=== PATIENT | female | born 1950 | race Caucasian/White ===

== ENCOUNTER 2018-05-03 04:06 | Inpatient (IN) ==
--- NOTE | 2018-05-03 04:43 | Emergency Department Note ---
Disposition Clinical Impression: Elevated troponin I level Rhabdomyolysis Qualifiers: Rhabdomyolysis type: non-traumatic Qualified Code(s): M62.82 - Rhabdomyolysis Disposition: Still a Patient Condition: Fair Referrals: Siobhan Robison CNP [Primary Care Provider] - Forms: ED Satisfaction Letter, Work/School Release Time of Disposition: 05:52 General Adult HPI - General Chief complaint: ED General Medical Time Seen by Provider: 05/03/18 04:18 Source: patient, family, EMS Mode of arrival: EMS Limitations: other Nursing Notes Reviewed: Yes Vital Signs Reviewed: Yes - History of Present Illness HPI Narrative: Nontoxic-appearing 68-year-old female with a significant psychiatric history is brought by EMS for evaluation. The patient resides at a [facility] in [place]. She apparently left this facility sometime after 2:00 PM yesterday afternoon, as family reports this was the last time the patient was seen at said facility. The patient was found by search and rescue teams just prior to arrival. Family members report that the patient was lying in a low lying area, a region that sounds like a ditch somewhere between a parking lot and a and field. The patient states that she had fallen multiple times throughout the course of yesterday afternoon/evening and into this morning. She states that when she fell, she does remember hitting the back of her head. She denies any known loss of consciousness. When asked why she had left the facility, the patient stated that she just wanted to go for a walk. She states she got lost in the process. She denies any pain at the time of presentation however upon physical exam, she has point tenderness of the cervical, thoracic, and lumbar spine. She is not hypothermic upon the obtainment of triage vitals. She is alert, awake, and in no obvious distress. Pain Scale: 0 Treatments Prior to Arrival: none - Related Data Home Medications Medication Instructions Recorded Confirmed Albuterol Sulfate 11/05/15 Clonazepam 11/05/15 Lexapro 11/05/15 Multivitamins 11/05/15 11/05/15 Risperidone 11/05/15 Seroquel 11/05/15 Simvastatin 11/05/15 Previous Rx's Medication Instructions Recorded hydrOXYzine pamoate [HydrOXYzine 25 mg PO TID PRN #30 capsule 11/05/15 Pamoate] Allergies Allergy/AdvReac Type Severity Reaction Status Date / Time No Known Allergies Allergy Verified 11/05/15 18:40 All systems ED: reviewed and negative except as stated. Review of Systems: As Per HPI Constitutional: Denies: fever, chills, weakness, weight change Eyes: Denies: eye pain, eye discharge, vision change ENT ED: Denies: ear pain, throat pain, dental pain, hearing loss, epistaxis, congestion, dysphagia Cardiovascular: Denies: chest pain, palpitations, dyspnea on exertion, edema, syncope Respiratory: Denies: cough, dyspnea, wheezes, hemoptysis, stridor Gastrointestinal: Denies: abdominal pain, nausea, vomiting, diarrhea, constipation, hematemesis, melena, hematochezia Genitourinary: Denies: dysuria, frequency, hematuria, discharge Musculoskeletal: Reports: back pain, neck pain. Denies: arthralgia, myalgia Integumentary: Denies: rash, abrasion, lesions Neurological: Denies: headache, weakness, numbness, paresthesias, confusion, abnormal gait, vertigo Psychiatric: Denies: anxiety, depression, suicidal thoughts, homicidal thoughts , auditory hallucinations, visual hallucinations Endocrine: Denies: fatigue Hematological/Lymphatic: Denies: easy bleeding, easy bruising Allergic/Immunologic: Denies: facial swelling, urticaria Past Medical History - Past Medical History Attestation: Yes The following information was validated with the patient. Source: patient, nursing notes reviewed Medical history: Reports: non-contributory, hyperlipidemia Psychiatric history: Reports: anxiety, bipolar, schizophrenia - Social History Smoking Status: Unknown if ever smoked Smokeless Tobacco Status: No Alcohol use: Reports: unknown Drug use: Reports: none Physical Exam - General Limitations: no limitations General appearance: alert, in no apparent distress - Head Head exam: atraumatic, normocephalic, normal inspection - Expanded Head Exam Head exam physicial: Absent: laceration, abrasion, contusion, hematoma, raccoon eyes, Ji's sign, tenderness of temporal artery - Eye Eye exam: Present: normal appearance, PERRL, EOMI. Absent: nystagmus - ENT ENT exam: mucous membranes dry - Neck Neck exam: Present: full ROM, trachea midline, tenderness (Point tenderness, cervical spine) - Chest Chest inspection: Present: normal inspection, symmetric chest wall rise - Respiratory Respiratory exam: Present: normal lung sounds bilaterally. Absent: respiratory distress, wheezes, stridor, accessory muscle use, prolonged expiratory phase - Cardiovascular Cardiovascular exam: Present: regular rate, normal rhythm, normal heart sounds - Abdominal Exam Abdominal exam: Present: soft, Non-Tender, normal bowel sounds - Expanded Upper Extremity Exam Shoulder exam: Present: full ROM Arm exam: Present: full ROM, erythema (Small well-demarcated area of ecchymosis noted to the medial aspect of the right upper arm) Elbow exam: Present: full ROM Forearm/Wrist exam: Present: full ROM Hand exam: Present: full ROM Neuromotor exam: Normal: wrist extension, thumb opposition, fingers 2-5 abduction Neurosensory exam: Normal: radial nerve, ulnar nerve, 2-point discrimination Hand tendon exam: Normal: flexor digitorum profundus (location), extensor tendon (location) Vascular exam: Normal: capillary refill, radial pulse, ulnar pulse - Back Exam Back exam: Present: tenderness, vertebral tenderness (Point tenderness with palpation of the vertebral spinous processes of the thoracic and lumbar spine.) - Neurological Exam Neurological exam: Present: alert - Psychiatric Psychiatric exam: Present: normal affect, normal mood - Skin Skin exam: Present: warm, dry, intact Course Vital Signs Temperature 98.3 F 05/03/18 04:17 Pulse Rate 107 05/03/18 04:17 Respiratory Rate 20 05/03/18 04:17 Blood Pressure 100/83 05/03/18 04:17 O2 Sat by Pulse Oximetry 96 05/03/18 04:17 Temperature 98.3 F 05/03/18 04:17 Pulse Rate 105 05/03/18 06:31 Respiratory Rate 21 05/03/18 06:31 Blood Pressure 109/73 05/03/18 06:31 O2 Sat by Pulse Oximetry 95 05/03/18 06:31 Oxygen Delivery Oxygen Delivery Room Air Medical Decision Making - [facility] Narrative Medical decision making narrative: After receiving word of her elevated troponin and obtain EKG which showed only sinus tachycardia at a rate of 114 bpm, I reevaluated the patient. Upon this reevaluation, the patient does state that she has had episodes of left-sided chest pain however this has been occurring for the past 1-2 months. About the details describes it as a pressure in the left anterior chest. She denies any new or worsening pain. Aspirin will be given. At this time, we are awaiting urinalysis and imaging results prior to admission to the hospital service for elevated troponin levels and rhabdomyolysis. Care of this patient will be transferred to the [facility]-level provider. - Medical Records Medical records reviewed: Yes I reviewed the patient's medical records. - Lab Data Lab results reviewed: Yes I reviewed the patient's lab results. Lab results narrative: Lab Results 05/03/18 05/03/18 05/03/18 Range/Units 04:40 04:40 04:40 WBC 13.3 H (4.3-11.1) K/mcL RBC 4.67 (3.82-4.97) M/mcL Hgb 14.6 (11.5-15.4) g/dL Hct 41.2 (35.3-44.9) % MCV 88.2 (83.0-100.0) fL MCH 31.3 (28.0-33.3) pg MCHC 35.4 (31.6-35.5) g/dL RDW 13.0 (11.5-14.5) % Plt Count 111 L (140-400) K/mcL MPV 11.3 (9.4-12.4) fL Immature Gran % 0.5 (0-4) % Seg Neutrophils % 79.2 % Lymphocytes % 13.1 % Monocytes % 7.0 % Eosinophils % 0.0 % Basophils % 0.2 % Neutrophils # 10.5 H (1.6-8.9) K/mcL Lymphocytes # 1.7 (0.6-4.6) K/mcL Monocytes # 0.9 (0.0-1.3) K/mcL Eosinophils # 0.0 (0.0-0.6) K/mcL Basophils # 0.0 (0.0-0.2) K/mcL PT 13.2 H (9.4-12.1) Seconds INR 1.2 APTT 31.6 (26.0-36.0) Seconds Sodium 138 (136-145) mEq/L Potassium 4.2 (3.5-5.1) mEq/L Chloride 103 (98-107) mEq/L Carbon Dioxide 13 L (23-29) mEq/L BUN 31 H (8-23) mg/dL Creatinine 2.61 H (0.60-1.20) mg/dL Est GFR ( Amer) 22 L (> 60) Est GFR (Non-Af Amer) 18 L (> 60) BUN/Creatinine Ratio 12 (6-26) Glucose 188 H (70-105) mg/dL Calculated Osmolality 298 (280-300) Calcium 9.4 (8.6-10.3) mg/dL Creatine Kinase 3754 H (30-223) Units/L Troponin I 3.05 H* (< 0.04) ng/mL Result diagrams: 05/03/18 04:40 05/03/18 04:40 Lab Results 05/03/18 05/03/18 05/03/18 Range/Units 04:40 04:40 04:40 WBC 13.3 H (4.3-11.1) K/mcL RBC 4.67 (3.82-4.97) M/mcL Hgb 14.6 (11.5-15.4) g/dL Hct 41.2 (35.3-44.9) % MCV 88.2 (83.0-100.0) fL MCH 31.3 (28.0-33.3) pg MCHC 35.4 (31.6-35.5) g/dL RDW 13.0 (11.5-14.5) % Plt Count 111 L (140-400) K/mcL MPV 11.3 (9.4-12.4) fL Immature Gran % 0.5 (0-4) % Seg Neutrophils % 79.2 % Lymphocytes % 13.1 % Monocytes % 7.0 % Eosinophils % 0.0 % Basophils % 0.2 % Neutrophils # 10.5 H (1.6-8.9) K/mcL Lymphocytes # 1.7 (0.6-4.6) K/mcL Monocytes # 0.9 (0.0-1.3) K/mcL Eosinophils # 0.0 (0.0-0.6) K/mcL Basophils # 0.0 (0.0-0.2) K/mcL PT 13.2 H (9.4-12.1) Seconds INR 1.2 APTT 31.6 (26.0-36.0) Seconds Sodium 138 (136-145) mEq/L Potassium 4.2 (3.5-5.1) mEq/L Chloride 103 (98-107) mEq/L Carbon Dioxide 13 L (23-29) mEq/L BUN 31 H (8-23) mg/dL Creatinine 2.61 H (0.60-1.20) mg/dL Est GFR ( Amer) 22 L (> 60) Est GFR (Non-Af Amer) 18 L (> 60) BUN/Creatinine Ratio 12 (6-26) Glucose 188 H (70-105) mg/dL Calculated Osmolality 298 (280-300) Calcium 9.4 (8.6-10.3) mg/dL Creatine Kinase 3754 H (30-223) Units/L Troponin I 3.05 H* (< 0.04) ng/mL Urine Color (Yellow) Urine Clarity (Clear) Urine pH (5.0-8.0) pH Units Ur Specific [place] (1.010-1.025) Urine Protein (Neg-Trace) mg/dL Urine Glucose (UA) (Normal) mg/dL Urine Ketones (Negative) mg/dL Urine Blood (Negative) Urine Nitrite (Negative) Urine Bilirubin (Negative) Urine Urobilinogen (Normal) mg/dL Ur Leukocyte Esterase (Negative) Urine Microscopic RBC (0-3) per hpf Urine Microscopic WBC (0-3) per hpf Ur Squamous Epith Cells (None-Few) per lpf Ur Transition Epith Cell (None-Few) per hpf Urine Bacteria (None-Few) per hpf Hyaline Casts (None-Few) per lpf Ur Culture Indicated? (NO) 05/03/18 Range/Units 05:52 WBC (4.3-11.1) K/mcL RBC (3.82-4.97) M/mcL Hgb (11.5-15.4) g/dL Hct (35.3-44.9) % MCV (83.0-100.0) fL MCH (28.0-33.3) pg MCHC (31.6-35.5) g/dL RDW (11.5-14.5) % Plt Count (140-400) K/mcL MPV (9.4-12.4) fL Immature Gran % (0-4) % Seg Neutrophils % % Lymphocytes % % Monocytes % % Eosinophils % % Basophils % % Neutrophils # (1.6-8.9) K/mcL Lymphocytes # (0.6-4.6) K/mcL Monocytes # (0.0-1.3) K/mcL Eosinophils # (0.0-0.6) K/mcL Basophils # (0.0-0.2) K/mcL PT (9.4-12.1) Seconds INR APTT (26.0-36.0) Seconds Sodium (136-145) mEq/L Potassium (3.5-5.1) mEq/L Chloride (98-107) mEq/L Carbon Dioxide (23-29) mEq/L BUN (8-23) mg/dL Creatinine (0.60-1.20) mg/dL Est GFR ( Amer) (> 60) Est GFR (Non-Af Amer) (> 60) BUN/Creatinine Ratio (6-26) Glucose (70-105) mg/dL Calculated Osmolality (280-300) Calcium (8.6-10.3) mg/dL Creatine Kinase (30-223) Units/L Troponin I (< 0.04) ng/mL Urine Color Dark Yellow (Yellow) Urine Clarity Cloudy A (Clear) Urine pH 5.5 (5.0-8.0) pH Units Ur Specific [place] 1.011 (1.010-1.025) Urine Protein 30 H (Neg-Trace) mg/dL Urine Glucose (UA) Normal (Normal) mg/dL Urine Ketones 40 H (Negative) mg/dL Urine Blood Large H (Negative) Urine Nitrite Negative (Negative) Urine Bilirubin Small H (Negative) Urine Urobilinogen Normal (Normal) mg/dL Ur Leukocyte Esterase Negative (Negative) Urine Microscopic RBC 5-15 H (0-3) per hpf Urine Microscopic WBC 3-5 H (0-3) per hpf Ur Squamous Epith Cells Many H (None-Few) per lpf Ur Transition Epith Cell Few (None-Few) per hpf Urine Bacteria None Seen (None-Few) per hpf Hyaline Casts Few (None-Few) per lpf Ur Culture Indicated? NO (NO) - EKG Data EKG #1 EKG attestation: Yes I reviewed and interpreted this EKG. EKG results narrative: EKG shows a sinus tachycardia at a rate of 114 bpm. MO interval 143, QRS duration 67, QT/QTc interval 352/485. No ectopy noted. No ST elevation. Critical Care Time Critical Care Time: Yes Total Critical Care Time: 25 Attestation: 25 minutes of critical care time was invested independent of separately billable procedures S.B.A.R. - S.B.A.Harpreet. Situation: Demographics, MOA Background: Presenting Complaint, Relevant PMH, Meds, & Allergies Assessment: Vital Signs, Course and respsone to treatment, Exam Concerns, Patient/Family Expectation, Pertinant Lab Results, Outstanding Labs Recommendation: Barrier(s) to disposition, Recommendation based on pending studies, treatments, or consults S.B.A.R. Report Given to: Rio Wisdom CNP S.B.A.RÓscar Repor Time: 06:00 Attestation Statement - Attestation Attestation: I have personally performed a face to face evaluation on this patient. I have reviewed and agree with the care plan. History and Exam by me shows: History was sketchy because the patient's baseline psychiatric disease. Her evaluation was concerning for rhabdomyolysis and elevated troponin, and the latter was concerning for non-ST elevation DC. IV fluid was given for rhabdo and heparin was started for non-ST elevation DC Cardiology in the hospitalist service were contacted by the mid-level provider, and she was admitted to the hospital
[2018-05-03] MEDS ORDERED: 0.9 % Sodium Chloride 1,000 ML IVC ONE ×2 (04:45→05:41)
[2018-05-03 04:56] LABS: Basophils % 0.2 %; Hematocrit 41.2 % (35.3-44.9); Hemoglobin 14.6 g/dL (11.5-15.4); Immature Granulocytes % 0.5 % (0-4); Lymphocytes # 1.7 K/mcL (0.6-4.6); Lymphocytes % 13.1 %; Mean Corpuscular HGB Conc 35.4 g/dL (31.6-35.5); Mean Corpuscular Hemoglobin 31.3 pg (28.0-33.3); Mean Corpuscular Volume 88.2 fL (83.0-100.0); Mean Platelet Volume 11.3 fL (9.4-12.4); Monocytes # 0.9 K/mcL (0.0-1.3); Neutrophils # 10.5 K/mcL (1.6-8.9); Platelet Count 111 K/mcL (140-400); Red Blood Count 4.67 M/mcL (3.82-4.97); Segmented Neutrophils % 79.2 %
[2018-05-03 05:04] LABS: INR 1.2; Prothrombin Time 13.2 Seconds (9.4-12.1)
[2018-05-03 05:07] LABS: Activated Partial Thrombo Time 31.6 Seconds (26.0-36.0)
[2018-05-03 05:22] LABS: Troponin I 3.05 ng/mL (< 0.04)
[2018-05-03 05:49] LABS: Calcium 9.4 mg/dL (8.6-10.3); Potassium 4.2 mEq/L (3.5-5.1)
[2018-05-03 06:05] LABS: Bilirubin,Urine Small (Negative); Blood,Urine Large (Negative); Clarity,Urine Cloudy (Clear); Color,Urine Dark Yellow (Yellow); Glucose,Urine (UA) Normal (Normal); Ketones,Urine 40 mg/dL (Negative); Leukocyte Esterase,Urine Negative (Negative); Nitrite,Urine Negative (Negative); PH,Urine 5.5 pH Units (5.0-8.0); Protein,Urine 30 mg/dL (Neg-Trace); Specific Gravity,Urine 1.011 (1.010-1.025); Urobilinogen,Urine Normal (Normal)
[2018-05-03 06:07] LABS: Bacteria,Urine None Seen per hpf (None-Few); Squamous Epithelial Cell,Urine Many per lpf (None-Few)
[2018-05-03 06:19] LABS: Hyaline Casts,Urine Few per lpf (None-Few); Transitional Epi Cells,Urine Few per hpf (None-Few)
[2018-05-03] MEDS ORDERED: *HR* Heparin 5,000 UNIT/ML VIAL IVP ONE (06:31)
[2018-05-03] MEDS ORDERED: Aspirin 81 MG TAB.CHEW ONE (06:33)
[2018-05-03] MEDS ORDERED: Aspirin 81 MG TAB.CHEW PO ONE (06:37)
[2018-05-03] MEDS ORDERED: Heparin 25,000 UNIT/500 ML D5W 25,000 UNIT/500 ML BAG IVC SCH (06:45)
--- NOTE | 2018-05-03 07:08 | Emergency Department Note ---
Disposition Clinical Impression: Elevated troponin I level Rhabdomyolysis Qualifiers: Rhabdomyolysis type: non-traumatic Qualified Code(s): M62.82 - Rhabdomyolysis Acute renal failure Qualifiers: Acute renal failure type: unspecified Qualified Code(s): N17.9 - Acute kidney failure, unspecified Disposition: Admitted As Inpatient Condition: Fair Referrals: Siobhan Robison ACADEMIC SUPPORT ASSISTANT [Primary Care Provider] - Forms: ED Satisfaction Letter, Work/School Release General Adult HPI - General Chief complaint: ED General Medical Time Seen by Provider: 05/03/18 04:18 Source: patient, family, EMS Mode of arrival: EMS Limitations: no limitations Nursing Notes Reviewed: Yes Vital Signs Reviewed: Yes - History of Present Illness Pain Scale: 0 Treatments Prior to Arrival: none - Related Data Home Medications Medication Instructions Recorded Confirmed Albuterol Sulfate 11/05/15 Clonazepam 11/05/15 Lexapro 11/05/15 Multivitamins 11/05/15 11/05/15 Risperidone 11/05/15 Seroquel 11/05/15 Simvastatin 11/05/15 Previous Rx's Medication Instructions Recorded hydrOXYzine pamoate [HydrOXYzine 25 mg PO TID PRN #30 capsule 11/05/15 Pamoate] Allergies Allergy/AdvReac Type Severity Reaction Status Date / Time No Known Allergies Allergy Verified 11/05/15 18:40 Constitutional: Denies: fever, chills, weakness, weight change Eyes: Denies: eye pain, eye discharge, vision change ENT ED: Denies: ear pain, throat pain, dental pain, hearing loss, epistaxis, congestion, dysphagia Cardiovascular: Denies: chest pain, palpitations, dyspnea on exertion, edema, syncope Respiratory: Denies: cough, dyspnea, wheezes, hemoptysis, stridor Gastrointestinal: Denies: abdominal pain, nausea, vomiting, diarrhea, constipation, hematemesis, melena, hematochezia Genitourinary: Denies: dysuria, frequency, hematuria, discharge Musculoskeletal: Reports: back pain, neck pain. Denies: arthralgia, myalgia Integumentary: Denies: rash, abrasion, lesions Neurological: Denies: headache, weakness, numbness, paresthesias, confusion, abnormal gait, vertigo Psychiatric: Denies: anxiety, depression, suicidal thoughts, homicidal thoughts , auditory hallucinations, visual hallucinations Endocrine: Denies: fatigue Hematological/Lymphatic: Denies: easy bleeding, easy bruising Allergic/Immunologic: Denies: facial swelling, urticaria Past Medical History - Past Medical History Medical history: Reports: non-contributory, hyperlipidemia Psychiatric history: Reports: anxiety, bipolar, schizophrenia - Social History Smoking Status: Unknown if ever smoked Smokeless Tobacco Status: No Alcohol use: Reports: unknown Drug use: Reports: none Physical Exam - General Limitations: no limitations General appearance: alert, in no apparent distress Course Vital Signs Temperature 98.3 F 05/03/18 04:17 Pulse Rate 107 05/03/18 04:17 Respiratory Rate 20 05/03/18 04:17 Blood Pressure 100/83 05/03/18 04:17 O2 Sat by Pulse Oximetry 96 05/03/18 04:17 Temperature 98.3 F 05/03/18 04:17 Pulse Rate 105 05/03/18 06:31 Respiratory Rate 21 05/03/18 06:31 Blood Pressure 109/73 05/03/18 06:31 O2 Sat by Pulse Oximetry 95 05/03/18 06:31 Oxygen Delivery Oxygen Delivery Room Air Medical Decision Making - MDM Narrative Medical decision making narrative: 68 year old female with significant psych history sent by ambulance for evaluation. Patient was missed from group house over 18 hours. Patient was found lying on a ditch nearby a parking lot. Patient could not remember what happened. Patient complained of neck pain chest pain and a back pain. please see Ta Ford CNP's note for detailed physical exam. labs: elevated CK >3000, creatine >2, troponin 3.07. Impression: acute renal failure, rhabdomyolysis, elevated Troponin. Unremarkable EKG. negative imagines. Spoke with Circuit Walker Dr. Rosa. He is on board. He will see the patient in floor. Spoke with Hospitalist Dr. Rg. Pt is accepted. Dr. Fuentes saw the patient and agrees the above plan. - Lab Data Result diagrams: 05/03/18 04:40 05/03/18 04:40 Lab Results 05/03/18 05/03/18 05/03/18 Range/Units 04:40 04:40 04:40 WBC 13.3 H (4.3-11.1) K/mcL RBC 4.67 (3.82-4.97) M/mcL Hgb 14.6 (11.5-15.4) g/dL Hct 41.2 (35.3-44.9) % MCV 88.2 (83.0-100.0) fL MCH 31.3 (28.0-33.3) pg MCHC 35.4 (31.6-35.5) g/dL RDW 13.0 (11.5-14.5) % Plt Count 111 L (140-400) K/mcL MPV 11.3 (9.4-12.4) fL Immature Gran % 0.5 (0-4) % Seg Neutrophils % 79.2 % Lymphocytes % 13.1 % Monocytes % 7.0 % Eosinophils % 0.0 % Basophils % 0.2 % Neutrophils # 10.5 H (1.6-8.9) K/mcL Lymphocytes # 1.7 (0.6-4.6) K/mcL Monocytes # 0.9 (0.0-1.3) K/mcL Eosinophils # 0.0 (0.0-0.6) K/mcL Basophils # 0.0 (0.0-0.2) K/mcL PT 13.2 H (9.4-12.1) Seconds INR 1.2 APTT 31.6 (26.0-36.0) Seconds Sodium 138 (136-145) mEq/L Potassium 4.2 (3.5-5.1) mEq/L Chloride 103 (98-107) mEq/L Carbon Dioxide 13 L (23-29) mEq/L BUN 31 H (8-23) mg/dL Creatinine 2.61 H (0.60-1.20) mg/dL Est GFR ( Amer) 22 L (> 60) Est GFR (Non-Af Amer) 18 L (> 60) BUN/Creatinine Ratio 12 (6-26) Glucose 188 H (70-105) mg/dL Calculated Osmolality 298 (280-300) Calcium 9.4 (8.6-10.3) mg/dL Creatine Kinase 3754 H (30-223) Units/L Troponin I 3.05 H* (< 0.04) ng/mL Urine Color (Yellow) Urine Clarity (Clear) Urine pH (5.0-8.0) pH Units Ur Specific [place] (1.010-1.025) Urine Protein (Neg-Trace) mg/dL Urine Glucose (UA) (Normal) mg/dL Urine Ketones (Negative) mg/dL Urine Blood (Negative) Urine Nitrite (Negative) Urine Bilirubin (Negative) Urine Urobilinogen (Normal) mg/dL Ur Leukocyte Esterase (Negative) Urine Microscopic RBC (0-3) per hpf Urine Microscopic WBC (0-3) per hpf Ur Squamous Epith Cells (None-Few) per lpf Ur Transition Epith Cell (None-Few) per hpf Urine Bacteria (None-Few) per hpf Hyaline Casts (None-Few) per lpf Ur Culture Indicated? (NO) 05/03/18 Range/Units 05:52 WBC (4.3-11.1) K/mcL RBC (3.82-4.97) M/mcL Hgb (11.5-15.4) g/dL Hct (35.3-44.9) % MCV (83.0-100.0) fL MCH (28.0-33.3) pg MCHC (31.6-35.5) g/dL RDW (11.5-14.5) % Plt Count (140-400) K/mcL MPV (9.4-12.4) fL Immature Gran % (0-4) % Seg Neutrophils % % Lymphocytes % % Monocytes % % Eosinophils % % Basophils % % Neutrophils # (1.6-8.9) K/mcL Lymphocytes # (0.6-4.6) K/mcL Monocytes # (0.0-1.3) K/mcL Eosinophils # (0.0-0.6) K/mcL Basophils # (0.0-0.2) K/mcL PT (9.4-12.1) Seconds INR APTT (26.0-36.0) Seconds Sodium (136-145) mEq/L Potassium (3.5-5.1) mEq/L Chloride (98-107) mEq/L Carbon Dioxide (23-29) mEq/L BUN (8-23) mg/dL Creatinine (0.60-1.20) mg/dL Est GFR ( Amer) (> 60) Est GFR (Non-Af Amer) (> 60) BUN/Creatinine Ratio (6-26) Glucose (70-105) mg/dL Calculated Osmolality (280-300) Calcium (8.6-10.3) mg/dL Creatine Kinase (30-223) Units/L Troponin I (< 0.04) ng/mL Urine Color Dark Yellow (Yellow) Urine Clarity Cloudy A (Clear) Urine pH 5.5 (5.0-8.0) pH Units Ur Specific [place] 1.011 (1.010-1.025) Urine Protein 30 H (Neg-Trace) mg/dL Urine Glucose (UA) Normal (Normal) mg/dL Urine Ketones 40 H (Negative) mg/dL Urine Blood Large H (Negative) Urine Nitrite Negative (Negative) Urine Bilirubin Small H (Negative) Urine Urobilinogen Normal (Normal) mg/dL Ur Leukocyte Esterase Negative (Negative) Urine Microscopic RBC 5-15 H (0-3) per hpf Urine Microscopic WBC 3-5 H (0-3) per hpf Ur Squamous Epith Cells Many H (None-Few) per lpf Ur Transition Epith Cell Few (None-Few) per hpf Urine Bacteria None Seen (None-Few) per hpf Hyaline Casts Few (None-Few) per lpf Ur Culture Indicated? NO (NO)
[2018-05-03 08:07] LABS: Heparin anti-factor XA UFH 0.01 IU/mL (0.30-0.70)
[2018-05-03 08:08] LABS: INR 1.2; Prothrombin Time 13.6 Seconds (9.4-12.1)
[2018-05-03] MEDS ORDERED: Naloxone 0.4 MG/ML INJ IVP PRN (08:14)
[2018-05-03] MEDS ORDERED: Acetaminophen 325 MG TABLET PO PRN (08:14)
[2018-05-03] MEDS ORDERED: traMADol 50 MG TABLET PO PRN (08:14)
--- NOTE | 2018-05-03 08:20 | Internal Med History&Physical ---
Date of Encounter: 05/03/18 Time of Encounter: 11:31 Internal Medicine - H&P: HPI Chief complaint: I don't know what happened Admitted From: Home Plans for Post Hospital Care: Home History of present illness: Ms. Dash is a 68 year old female with significant psych history -per chart bipolar disroder, schizophrania, HLD, brought in to our ER after havingbeing missing from her care/snf for over 18 hours. Patient was found lying on a ditch nearby a parking lot. Patient could not remember what happened. Patient complained of neck pain chest pain and a back pain. She states that she had fallen multiple times throughout the course of yesterday afternoon/evening and into this morning. At my time of review, she still does not remember why she went, she was placed but reports not having anything to eat or drink for the past 18 hours. She also reports a history of chronic diarrhea which has recently worsened. She denies fever or chills. Her history is unreliable as the patient is very forgetful and does not retain any information, she does know she is at [place] but that is all she remembers. She denies illicit drug use and states she takes "some pills and a shot daily" She denies alcohol intake Workup in the ER showed CK greater than 3000 with an acute kidney injury. Initial troponin of 3, with no EKG findings. Chest, cervical, head, lumbar and thoracic spine CT was negative for any fractures. She was started on heparin and IV fluid hydration and admitted to the hospitalist service. She had one episode of bloody bowel movement on the unit, heparin has been discontinued as the patient is low-risk for acute coronary syndrome. She also has a rash around both knees, she states they are new, she has multiple excoriations from recurrent falls We will assume she is full code until otherwise stated by patient if her memory improves or if she has family members come in Past Med Surg Social Fam HX - Past Medical History Medical history: non-contributory, hyperlipidemia Psychiatric history: anxiety, bipolar, schizophrenia - Social History Smoking Status: Unknown if ever smoked Smokeless Tobacco Status: No Alcohol use: unknown Drug use: none Internal Medicine - H&P: Meds Albuterol Sulfate 11/05/15 [History] Clonazepam 11/05/15 [History] Lexapro 11/05/15 [History] Multivitamins 11/05/15 [History] Risperidone 11/05/15 [History] Seroquel 11/05/15 [History] Simvastatin 11/05/15 [History] hydrOXYzine pamoate [HydrOXYzine Pamoate] 25 mg PO TID PRN #30 capsule 11/05/15 [Rx] 3 Allergy/AdvReac Type Severity Reaction Status Date / Time No Known Allergies Allergy Verified 11/05/15 18:40 All Systems PM: A 10-system review of systems was performed and is negative for pertinent findings except as documented above in the HPI. - Constitutional Constitutional: no chills, no fever(s), no night sweats - EENT Eyes: no change in vision, no discharge, no pain, no photophobia Ears: no ear discharge, no ear pain, no tinnitus Nose, mouth and throat: no dysphagia, no nasal discharge, no neck pain, no sore throat - Cardiovascular Cardiovascular ROS IM: as per HPI - Respiratory Respiratory: as per HPI - Gastrointestinal Gastrointestinal: as per HPI - Genitourinary Genitourinary: as per HPI - Musculoskeletal Musculoskeletal ROS IM: as per HPI - Integumentary Integumentary IM: as per HPI - Neurological Neurological ROS: as per HPI - Hematologic/Lymphatic Hematologic/Lymphatic: as per HPI - Constitutional Vitals: Temp Pulse Resp BP Pulse Ox 98.3 F 99 20 100/69 96 05/03/18 04:17 05/03/18 08:00 05/03/18 08:00 05/03/18 08:00 05/03/18 08:00 General appearance: Present: A&O X 1 (patient is alert, but oriented to self only. ), disheveled, pleasant, no acute distress, obese. Absent: answers questions appropriately Exam: see systemic exam - Head Head exam: Present: atraumatic, normocephalic - Eye Eye exam: Present: PERRL, conjuntiva pink, sclera anicteric Pupils: Present: PERRL - Neck Neck exam general surgery: Present: supple, trachea midline. Absent: lymphadenopathy - Respiratory Respiratory exam: Present: CTAB. Absent: accessory muscle use, rales, rhonchi, wheezes - Cardiovascular Cardiovascular exam: Present: RRR, +S1, +S2. Absent: diastolic murmur, gallop, rubs, systolic murmur - GI/Abdominal GI/Abdominal exam: Present: normal bowel sounds, soft, no peritoneal signs. Absent: distended, rebound, rigid, tenderness - Extremities Exam Extremities exam: Present: warm, radial pulses palpable and symmetrical. Absent : calf tenderness, cyanotic, pedal edema Additional comments: bilateral knee region rash, macular, not raised, no weeping, associated excoriations and bruising - Neurological Exam Neurological exam: Present: alert, CN II-XII intact, no focal deficits. Absent : oriented X3, pronater drift, facial droop, speech deficit - Skin Skin exam: Present: dry, intact Internal Med - H&P Results - Labs CBC & Chem 7: 05/03/18 04:40 05/03/18 04:40 - Assessment and plan (1) Rhabdomyolysis Current Visit: Yes Status: Acute Assessment and plan: Patient said to have left the detention where she resides for 17 hrs prior to being found in a ditch by rescue teams NO evidence of trauma on exam She has no bruises or hematoma, no evidence of compartment syndrome She has CK of 3754, continue IVF hydration Strict I and Os Monitor CK Ambulate patient prn Qualifiers: Rhabdomyolysis type: non-traumatic Qualified Code(s): M62.82 - Rhabdomyolysis (2) Acute renal failure Current Visit: Yes Status: Acute Assessment and plan: Patient with no known hx of renal disease Pre-renal from dehydration as patient reported hx of chronic diarrhea and she had been lost for 17 hrs without po intake 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 Cr and GFR from records 0.8-0.9, >60 Presented with Cr of 2.6 and GFR of 16 Continue IVF hydration with LR, monitor renal function Add sodium biacrb po for renal acidosis Obtain retroperitoneal USS Avoid nephrotoxins Strict I and Os Qualifiers: Acute renal failure type: unspecified Qualified Code(s): N17.9 - Acute kidney failure, unspecified (3) Elevated troponin I level Current Visit: Yes Status: Acute Assessment and plan: Presenting trop 3.05, down trending to 2.67, no chest pain, no EKG findings, in the setting of rhabdomyolysis Obtain ECHO Continue tele Discontinue heparin for now cardio was called by ER,we will follow their recommendations (4) Schizophrenia Current Visit: Yes Status: Chronic Assessment and plan: resume home meds when confirmed Qualifiers: Schizophrenia type: unspecified Qualified Code(s): F20.9 - Schizophrenia, unspecified (5) Bipolar disorder Current Visit: Yes Status: Chronic Assessment and plan: Home medications to be confirmed, will resume home medications when confirmed. Qualifiers: Active/Remission status: remission status unspecified Qualified Code(s): F31.9 - Bipolar disorder, unspecified (6) Encephalopathy Current Visit: Yes Status: Acute Assessment and plan: Patient continues to be confused,, she does not remember any events from yesterday morning when she started to have left a snf. She does not remember how she went out with. Encephalopathy, multifactorial: Metabolic from Acute renal failure, infectious causes, no evidence of trauma on CAT scan. We will continue IV hydration, if patient does not improve, we will obtain a brain MRI, consult neurology and might get a lumbar puncture. Obtain urine toxicology screen She is afebrile at this time (7) Bleeding per rectum Current Visit: Yes Status: Acute Assessment and plan: likley hemorrhoidal in a patient who received heparin for a couple of hrs Continue to monitor Hb (8) Leukocytosis Current Visit: Yes Status: Acute Assessment and plan: likely due to dehydration Continue to monitor Qualifiers: Leukocytosis type: unspecified Qualified Code(s): D72.829 - Elevated white blood cell count, unspecified - Time Spent With Patient Total time spent is greater than 50% in coordination of care (as documented) at patient's floor/unit and/or counseling patient:
[2018-05-03] MEDS ORDERED: Aspirin 81 MG TAB.CHEW PO SCH (09:00)
[2018-05-03] MEDS: Ringers Solution, Lactated 1,000 ML IVC SCH ×2 (10:50→20:56)
[2018-05-03 12:18] LABS: Amphetamine Screen,Urine Negative ng/mL (Cutoff=1000); Barbiturate Screen,Urine Negative ng/mL (Cutoff=200); Benzodiazepines Screen,Urine Negative ng/mL (Cutoff=200); Cannabinoid Screen,Urine Negative ng/mL (Cutoff = 50); Cocaine Screen,Urine Negative ng/mL (Cutoff= 300); Opiate Screen,Urine Negative ng/mL (Cutoff=300); Phencyclidine Screen,Urine Negative ng/mL (Cutoff=25)
[2018-05-03] MEDS: *HR* Heparin 5,000 UNIT/ML VIAL SQ SCH (18:17)
[2018-05-03] MEDS: *HR* OxyCODONE Immed Rel 5 MG TABLET PO PRN (21:02)
[2018-05-04] MEDS: *HR* OxyCODONE Immed Rel 5 MG TABLET PO PRN (04:20)
[2018-05-04 04:42] LABS: Mean Corpuscular Hemoglobin 30.4 pg (28.0-33.3)
[2018-05-04 04:44] LABS: Basophils % 0.5 %; Hematocrit 34.6 % (35.3-44.9); Hemoglobin 11.7 g/dL (11.5-15.4); Immature Granulocytes % 0.6 % (0-4); Immature Platelets 6.9 % (1.1-6.1); Lymphocytes # 2.8 K/mcL (0.6-4.6); Lymphocytes % 32.5 %; Mean Corpuscular HGB Conc 33.8 g/dL (31.6-35.5); Mean Corpuscular Volume 89.9 fL (83.0-100.0); Mean Platelet Volume 11.1 fL (9.4-12.4); Monocytes # 0.6 K/mcL (0.0-1.3); Monocytes % 7.3 %; Nucleated Red Blood Cells 0.2 /100 WBC (0); Red Blood Count 3.85 M/mcL (3.82-4.97); Segmented Neutrophils % 59.1 %
[2018-05-04 04:58] LABS: Platelet Count 86 K/mcL (140-400)
[2018-05-04 05:09] LABS: BUN/Creatinine Ratio 18 (6-26); Blood Urea Nitrogen 18 mg/dL (8-23); Calcium 8.5 mg/dL (8.6-10.3); Carbon Dioxide 23 mEq/L (23-29); Chloride 110 mEq/L (98-107); Glucose 142 mg/dL (70-105); Osmolality,Calculated 294 (280-300); Potassium 3.6 mEq/L (3.5-5.1); Sodium 140 mEq/L (136-145); eGFR For Non-African Americans 56 (> 60)
[2018-05-04 05:10] LABS: Chol/HDL Ratio 5.4 (0-4.9); Cholesterol 125 mg/dL (< 200); HDL Cholesterol 23 mg/dL (40-59); Triglycerides 487 mg/dL (< 150)
[2018-05-04 05:17] LABS: Creatine Kinase 4675 Units/L (30-223)
[2018-05-04] MEDS: *HR* Heparin 5,000 UNIT/ML VIAL SQ SCH ×2 (05:48→17:53)
[2018-05-04] MEDS: clonazePAM 1 MG TABLET PO SCH ×2 (09:58→21:19)
[2018-05-04] MEDS: Ringers Solution, Lactated 1,000 ML IVC SCH ×2 (09:59→22:14)
--- NOTE | 2018-05-04 10:28 | Internal Med Progress Note ---
Hospitalist Progress Note - Encounter Date of Encounter: 05/04/18 Time of Encounter: 10:28 - Subjective Interval History: Seen and examined at the bedside KITTY has resolved, CK is uptrending ECHO is unremarkanle - Exam Vitals: Temp Pulse Resp BP Pulse Ox 98.1 F 104 19 127/63 92 05/04/18 07:44 05/04/18 07:44 05/04/18 07:44 05/04/18 07:44 05/04/18 07:44 Exam: Gen: VSS, No apparent distress HEENT: Moist oral mucosa, no cyanosis, not pale Chest: CTAB Heart: S1, S2 only, no m/g/r Abdomen: Not tender Extremities: NO edema, bilateral LE excoriations, bilateral knee rashes, old , stable - Assessment and Plan (1) Rhabdomyolysis Current Visit: Yes Status: Acute Assessment and Plan: Patient said to have left the group home where she resides for 17 hrs prior to being found in a ditch by rescue teams NO evidence of trauma on exam She has no bruises or hematoma, no evidence of compartment syndrome On admission, CK was 3754, continue IVF hydration Strict I and Os Monitor CK daily Ambulate patient prn (2) Acute renal failure Current Visit: Yes Status: Acute Assessment and Plan: Patient with no known hx of renal disease Pre-renal KITTY from dehydration as patient reported hx of chronic diarrhea and she had been lost for 17 hrs without po intake 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 Cr and GFR from records 0.8-0.9, >60 Presented with Cr of 2.6 and GFR of 16 USS pending Continue IVF Cr now back to baseline Monitor I and Os (3) Elevated troponin I level Current Visit: Yes Status: Acute Assessment and Plan: Presenting trop 3.05, down trending to 2.67, no chest pain, no EKG findings, in the setting of rhabdomyolysis ECHO noted for EF of 70%, no valvular abnormalities, no wall motion abnormalities Continue tele (4) Schizophrenia Current Visit: Yes Status: Chronic Assessment and Plan: continue home meds (5) Bipolar disorder Current Visit: Yes Status: Chronic Assessment and Plan: continue home meds (6) Encephalopathy Current Visit: Yes Status: Acute Assessment and Plan: Patient continues to be confused,, she does not remember any events from 05/02 when she started to have left a [facility]. She does not remember who or how she went out with. Encephalopathy is likely multifactorial: Metabolic from Acute renal failure, infectious causes, no evidence of trauma on CAT scan. Urine toxicology is negative I spoke with Akiko returns to penitentiary with the patient is, Akiko states that the patient has had many episodes of leaving and walking off the penitentiary into the field or and barn. Akiko states the patient has once gone into a neighbor's home uninvited, and is usually confused. At this time, it is difficult to tell if the patient is at baseline. KITTY is improving, we will continue to monitor. (7) Bleeding per rectum Current Visit: Yes Status: Acute Assessment and Plan: no more episodes, continue to monitor (8) Leukocytosis Current Visit: Yes Status: Resolved Assessment and Plan: resolved (9) Tachycardia Current Visit: Yes Status: Acute Assessment and Plan: Asymptomatic Obtain new 12 lead EKG, likely sinus, old EKG was sinus - Time Spent with Patient Total time spent is greater than 50% in coordination of care (as documented) at patient's floor/unit and/or counseling patient: Plan of Care Discussed with: nurse Internal Medicine: Result - Labs CBC & Chem 7: 05/04/18 04:24 05/04/18 04:24 Labs: Short CBC 05/04/18 Range/Units 04:24 WBC 8.5 (4.3-11.1) K/mcL Hgb 11.7 D (11.5-15.4) g/dL Hct 34.6 L (35.3-44.9) % Plt Count 86 L (140-400) K/mcL Neutrophils # 5.0 (1.6-8.9) K/mcL BMP 05/04/18 04:24 Sodium 140 Potassium 3.6 Chloride 110 H Carbon Dioxide 23 BUN 18 Creatinine 0.99 Glucose 142 H Calcium 8.5 L Cardiac Enzymes 05/03/18 05/03/18 Range/Units 09:53 16:23 Troponin I 2.67 H* 2.15 H* (< 0.04) ng/mL - ABG Interpretation ABG results: PT/INR, D-dimer PT 13.6 Seconds (9.4-12.1) H 05/03/18 07:50 - Impressions Impressions Echocardiogram 05/04/18 08:17 Impressions: LVEF 70%. Normal LV chamber size, wall thickness and function. Mild left ventricular diastolic dysfunction. Normal right ventricular structure and function. Mild pulmonary hypertension. Consult Discharge Plan - Plan Referrals: Siobhan Robison, [employer] REPA[employer]ER [Primary Care Provider] - (1) Rhabdomyolysis Qualifiers: Rhabdomyolysis type: non-traumatic Qualified Code(s): M62.82 - Rhabdomyolysis (2) Acute renal failure Qualifiers: Acute renal failure type: unspecified Qualified Code(s): N17.9 - Acute kidney failure, unspecified (4) Schizophrenia Qualifiers: Schizophrenia type: unspecified Qualified Code(s): F20.9 - Schizophrenia, unspecified (5) Bipolar disorder Qualifiers: Active/Remission status: remission status unspecified Qualified Code(s): F31.9 - Bipolar disorder, unspecified (8) Leukocytosis Qualifiers: Leukocytosis type: unspecified Qualified Code(s): D72.829 - Elevated white blood cell count, unspecified
--- NOTE | 2018-05-04 12:30 | Cardiology Consult Note ---
<Natasha Hollowya - Last Filed: 05/04/18 14:09> Date of Encounter: 05/04/18 Time of Encounter: 10:00 Assessment and Plan (1) Rhabdomyolysis Current Visit: Yes Status: Acute Per cardiology: -Admitted with rhabdomyolysis. -Management per primary service. Qualifiers: Rhabdomyolysis type: non-traumatic Qualified Code(s): M62.82 - Rhabdomyolysis (2) Acute renal failure Current Visit: Yes Status: Acute Per cardiology: -ARF noted on admission, now resolved. -Management per primary service. Qualifiers: Acute renal failure type: unspecified Qualified Code(s): N17.9 - Acute kidney failure, unspecified (3) Elevated troponin I level Current Visit: Yes Status: Acute Per cardiology: -Troponins 3.05, 2.67, 2.15 in the setting of ARF, rhabdomyolysis. -ECG with no acute ischemic changes. -Denies current chest pain. -Does report chest pain with position change and deep inspiration. -Denies exertional chest pain. Chest pain atypical. -TTE with LVEF 70%, mild diastolic dysfunction, mild PH, no segmental wall motion abnormalities. -Of note, hemoglobin down almost 3 gm from admission, and platelets 86 today with baseline platelets 110-150s. -Troponins demand ischemia in the setting of ARF, rhabdo. No cardiac griffin consult warranted. -Again, with hemoglobin, platelets would favor conservative medical management. Will not start ASA due to platelets. -Will start BB, change statin. -Anticipate cardioogy sign off once seen and evaluated by . Discussion w patient/family: The assessment and plan as outlined above was discussed with the patient who expressed understanding and agreement. All questions were answered. Thank you for involving us in the care of your patient. Please call with any questions. Discussed and reviewed with . History of Present Illness Consult date: 05/03/18 Requesting physician: Sabino Wisdom Consult reason: elevated tropnin History of present illness: Ms. Dash is a 68 year old female with a relevant past medical history of GERD , HLD, schizoaffective disorder, DM who per reports was found on the side of the road. Per reports, patient lives in a [facility] and had been missing for about 18 hours. Upon my exam today, patient is unable to tell me any events of the past 2 days. Patient states she does not know why she is in the hospital. Patient reports current chest pain with position change and with deep breathing. Patient denies increased shortness of breath. Patient reports was not having any chest pain at home prior to event. Past Med Surg Social Fam HX - Past Medical History Attestation: Yes The following information was validated with the patient. Source: patient, old records reviewed Medical history: non-contributory, diabetes, hyperlipidemia Psychiatric history: anxiety, bipolar, schizophrenia - Past Surgical History Surgical History: non-contributory - Social History Smoking Status: Former smoker Smokeless Tobacco Status: No Alcohol use: none Drug use: none Medications and Allergies Albuterol Sulfate [Ventolin Hfa] 2 puff IH Q4H PRN 05/03/18 [History] Benztropine Mesylate [Benztropine Mesylate] 1 mg PO DAILY 05/03/18 [History] Escitalopram [Lexapro] 15 mg PO DAILY 05/03/18 [History] Quetiapine Fumarate [Seroquel] 50 mg PO QAM 05/03/18 [History] Quetiapine Fumarate [Seroquel] 200 mg PO HS 05/03/18 [History] RisperiDONE MICROSPHERES [RisperDAL CONSTA] 37.5 mg IM Q2W 05/03/18 [History] Simvastatin [Zocor] 40 mg PO DAILY 05/03/18 [History] clonazePAM [Clonazepam] 1 mg PO AD 05/03/18 [History] Potassium Chloride [K-Tab ER] 20 meq PO DAILY 05/04/18 [History] 3 Allergy/AdvReac Type Severity Reaction Status Date / Time No Known Allergies Allergy Verified 11/05/15 18:40 All Systems Review: The remainder of the systems were reviewed and are negative - Cardiovascular Cardiovascular: as per HPI, chest pain at rest Physical Examination Vital Signs Temperature 98.3 F 05/03/18 04:17 Pulse Rate 107 05/03/18 04:17 Respiratory Rate 20 05/03/18 04:17 Blood Pressure 100/83 05/03/18 04:17 O2 Sat by Pulse Oximetry 96 05/03/18 04:17 Temperature 98.1 F 05/04/18 07:44 Pulse Rate 104 05/04/18 07:44 Respiratory Rate 19 05/04/18 07:44 Blood Pressure 127/63 05/04/18 07:44 O2 Sat by Pulse Oximetry 92 10/08/18 07:44 Oxygen Delivery Oxygen Delivery Room Air General: Conversant, No Apparent Distress HEENT: Atraumatic, Normocephaly, Mucus Membranes Moist Neck: No JVD, Normal carotid pulses Cardiac: Reg Rate and Rhythm, Normal S1 and S2, No Murmur Lungs: Normal Breath Sounds, No Wheeze, Rales, Rhonchi Neuro: Alert and responsive, Other (Oriented to person and place. ) Abdomen: Soft, Non-Tender Skin: No rashes noted on visualized skin Musculoskeletal: No Chest Wall Tenderness Extremities: No Clubbing, No Cyanosis, Normal Pulses, Other (Mild bilateral pedal edema noted. ) Results 05/04/18 04:24 05/04/18 04:24 Lab Results Impressions Cervical Spine CT 05/03/18 04:29 IMPRESSION: No acute abnormality of the cervical spine. Heterogeneous enlarged left thyroid lobe. Recommend further evaluation with outpatient thyroid ultrasound, unless already performed elsewhere. D/ / 05/03/2018 07:49:14 Ghulam Toussaint / [email or web address] Interpreting Provider: Ghulam Toussaint Echocardiogram 05/04/18 08:17 Impressions: LVEF 70%. Normal LV chamber size, wall thickness and function. Mild left ventricular diastolic dysfunction. Normal right ventricular structure and function. Mild pulmonary hypertension. Active Medications Acetaminophen (Tylenol) 650 mg PO Q6HR PRN PRN Reason: Mild Pain/Fever Stop: 11/02/18 08:15 Albuterol Sulfate (Albuterol Inhaler) 2 puff IH Q4H PRN PRN Reason: Shortness Of Breath Stop: 11/03/18 08:20 Benztropine Mesylate (Cogentin) 1 mg PO DAILY NADIRA Stop: 11/03/18 09:01 Last Admin: 05/04/18 09:57 Dose: 1 mg Clonazepam (Klonopin) 1 mg PO BID NADIRA Stop: 11/03/18 09:01 Last Admin: 05/04/18 09:58 Dose: 1 mg Escitalopram Oxalate (Lexapro) 15 mg PO DAILY NADIRA Stop: 11/03/18 09:01 Last Admin: 05/04/18 09:57 Dose: 15 mg Heparin Sodium (Porcine) (Heparin) 5,000 unit SQ Q12HR NADIRA Stop: 11/02/18 18:01 Last Admin: 05/04/18 05:48 Dose: 5,000 unit Lactated Ringer's (Lactated Ringers) 1,000 mls @ 80 mls/hr IVC .[id number] NADIRA Stop: 11/03/18 09:31 Last Admin: 05/04/18 09:59 Dose: 80 mls/hr Naloxone HCl (Narcan) 0.4 mg IVP Q2MIN PRN PRN Reason: SEE COMMENTS Stop: 11/02/18 08:15 Oxycodone HCl (Roxicodone) 10 mg PO Q6HR PRN PRN Reason: Severe Pain Stop: 11/02/18 08:15 Last Admin: 05/04/18 04:20 Dose: 10 mg Simvastatin (Zocor) 40 mg PO HS NADIRA PRN Reason: Protocol Stop: 11/03/18 21:01 Tramadol HCl (Ultram) 50 mg PO Q6HR PRN PRN Reason: Moderate Pain Stop: 11/02/18 08:15 Laboratory Tests 05/03/18 05/03/18 05/03/18 04:40 04:40 09:53 WBC 13.3 H Hgb 14.6 Plt Count 111 L Creatinine 2.61 H Troponin I 3.05 H* 2.67 H* 05/03/18 05/04/18 05/04/18 16:23 04:24 04:24 WBC Hgb 11.7 D Plt Count 86 L Creatinine 0.99 Troponin I 2.15 H* - Imaging and Cardiology Chest Xray: report reviewed Echo: report reviewed - EKG Interpretation EKG results cardiology: personally reviewed (ECG with ST, HR 114. Non-specific T wave abnormalities noted.), other (Telemetry reviewed with average HR previous 12 hours noted to be 101, ST. PVCs and PACs noted.) Consult Discharge Plan - Plan Referrals: Siobhan Robison, [employer] SCI[employer] INSTRUCTOR [Primary Care Provider] - <Trevin Johnson - Last Filed: 05/06/18 10:51> Date of Encounter: 05/04/18 Time of Encounter: 17:30 - Attending Attestation I have personally performed a face to face evaluation on this patient. I have reviewed and agree with the care plan. History and Exam by me shows CC: Confusion, chest pain HPI: Pt presents after being found on the side of the road, confused, complaining of chest pain with deep inspiration, weakness and confusion. She is unable to recall how she got there, why she was lying down, any significant events in last two days. She had been missing from the [facility] she lives for approximately 18 hours, after wandering off without explanation. She does admit to pain in left chest, sixth rib, mid clavicular line, worse with deep inspiration or cough, no pain if she does not breath. She reports the pain with movement has improved since admission. PMH: reviewed ROS: reviewed LABS, Xrays reviewed, echo pending PE: pt seen and examined, agree with findings as documented. IMP/Plan: 1. Chest pain, atypical, most consistent with musculoskeltal pain, however would benefit from ischemic eval once other issues resolved, could be accomplished as an outpatient if continues to improve, 2. Elevated troponin; suspect due to demand ischemia, EKGs non acute, not significantly changed, with poor renal clearence due to acute renal failure 3: Rhabdomolysis: slowly improving with continued rehydration 4. Acute renal failure: slowly improving with gentle rehydration 5. Low functioning mental status, not a reliable historian.: Assessment and Plan Discussion w patient/family: The assessment and plan as outlined above was discussed with the patient and/or family members who expressed understanding and agreement. All questions were answered. Thank you for involving us in the care of your patient. Please call with any questions. History of Present Illness History of present illness: Ms. Dash is a 68 year old female All Systems Review: The remainder of the systems were reviewed and are negative Physical Examination Vital Signs, Last 4 Hours Temp Pulse Resp BP Pulse Ox 05/06/18 07:29 99.3 F 99 18 115/56 91 Results 05/06/18 07:02 05/06/18 07:02 Lab Results 05/06/18 05/06/18 07:02 07:02 WBC 7.1 Hgb 11.1 L Hct 33.0 L Plt Count 96 L Sodium 139 Potassium 3.4 L Chloride 106 Carbon Dioxide 24 BUN 14 Creatinine 0.85 Glucose 167 H Calcium 8.5 L Magnesium 1.8
[2018-05-04] MEDS ORDERED: Dextrose Gel 15 GM/37.5 ML TUBE PO PRN ×2 (12:42)
[2018-05-04] MEDS ORDERED: D5% in Water 1,000 ML IVC PRN (12:42)
[2018-05-04] MEDS ORDERED: *HR* Dextrose 50 % in Water (Syg) 50 ML SYRINGE IVP PRN (12:42)
[2018-05-04] MEDS ORDERED: Metoprolol XL (24 HR) Succ 25 MG TAB.ER.24H PO SCH (14:15)
[2018-05-04] MEDS: Insulin LISPRO 300 UNITS/3 ML VIAL SQ SCH ×2 (17:54→22:09)
--- NOTE | 2018-05-05 03:18 | Event Note ---
Date of Encounter: 05/05/18 Time of Encounter: 02:45 Called to see patient for acute onset tachycardia. I ordered STAT EKG and came to bedside to assess patient. EKG and telemetry suggest atrial fibrillation w RVR (new onset). BP stable at 120's/70's. I ordered STAT chem-7 and magnesium levels. I also ordered Cardizem drip and bolus. I reviewed notes from cardiology and primary attending. Cardiology has already signed off as they saw patient for troponin elevation in the setting of rhabdomyolysis. I will ask day team to re-consult cardiology for new-onset atrial fibrillation w RVR. Patient also reportedly having rectal bleeding per RN (?hemorrhoids). Will hold off anti-coagulation until this can be deciphered by primary team and cardiology.
[2018-05-05 03:40] LABS: Basophils % 0.2 %; Immature Granulocytes % 0.5 % (0-4); Red Blood Count 3.89 M/mcL (3.82-4.97)
[2018-05-05 03:42] LABS: Hematocrit 34.7 % (35.3-44.9); Lymphocytes # 1.8 K/mcL (0.6-4.6); Lymphocytes % 18.9 %; Mean Corpuscular HGB Conc 34.6 g/dL (31.6-35.5); Mean Corpuscular Hemoglobin 30.8 pg (28.0-33.3); Mean Corpuscular Volume 89.2 fL (83.0-100.0); Mean Platelet Volume 11.5 fL (9.4-12.4); Monocytes # 0.7 K/mcL (0.0-1.3); Monocytes % 6.8 %; Neutrophils # 7.1 K/mcL (1.6-8.9); Red Cell Distribution Width 12.5 % (11.5-14.5); Segmented Neutrophils % 73.6 %
[2018-05-05 03:43] LABS: Platelet Count 86 K/mcL (140-400)
[2018-05-05 04:01] LABS: BUN/Creatinine Ratio 14 (6-26); Blood Urea Nitrogen 11 mg/dL (8-23); Calcium 8.7 mg/dL (8.6-10.3); Carbon Dioxide 23 mEq/L (23-29); Chloride 103 mEq/L (98-107); Glucose 162 mg/dL (70-105); Magnesium 1.8 mg/dL (1.6-2.6); Osmolality,Calculated 285 (280-300); Potassium 3.4 mEq/L (3.5-5.1); Sodium 136 mEq/L (136-145); eGFR For Non-African Americans > 60 (> 60)
[2018-05-05 06:31] LABS: Estimated Average Glucose 137 mg/dl; Hemoglobin A1C 6.4 %
[2018-05-05] MEDS: *HR* Heparin 5,000 UNIT/ML VIAL SQ SCH ×2 (06:33→17:17)
[2018-05-05] MEDS: Metoprolol XL (24 HR) Succ 25 MG TAB.ER.24H PO SCH (09:25)
[2018-05-05] MEDS: clonazePAM 1 MG TABLET PO SCH ×2 (09:26→20:23)
[2018-05-05] MEDS: Insulin LISPRO 300 UNITS/3 ML VIAL SQ SCH ×4 (09:29→20:23)
--- NOTE | 2018-05-05 09:43 | Cardiology Progress Note ---
Date of Encounter: 05/05/18 Time of Encounter: 09:41 Assessment and Plan (1) Atrial fibrillation with RVR Current Visit: Yes Status: Acute Went into A-Fib RVR last night, new diagnosis. Pt reported chest pain when she went into A-Fib, now resolved. Was started on cardizem gtt, currently 7.5mg/hr. Sinus tach with PACs at bedside. Will transition to PO Cardizem CD 180mg daily. K 3.4--replace, Mag 1.8. Check TSH. TTE EF preserved 70% with mild LVDD. [id number] 3 (Age, DM, Female). High CVA risk, however, thrombocytopenia with PLT 86 today. High risk for bleeding. Recommend ASA 81mg daily. Pt aware of increased CVA risk not on full anticoagulation. Cardiology signing off. Reconsult PRN. Will coordinate outpt follow-up in 2-3 weeks. (2) Elevated troponin I level Current Visit: Yes Status: Acute Troponins 3.05, 2.67, 2.15 in the setting of ARF, rhabdomyolysis. ECG with no acute ischemic changes. Denies current chest pain. Reported CP overnight when she went into A-Fib. Does report chest pain with position change and deep inspiration. Denies exertional chest pain. Chest pain atypical. TTE with LVEF 70%, mild diastolic dysfunction, mild PH, no segmental wall motion abnormalities. HGB down almost 3 gm from admission, and platelets 86 today with baseline platelets 110-150s. Troponins demand ischemia in the setting of ARF, rhabdo. No cardiac griffin consult warranted. Again, with hemoglobin, platelets would favor conservative medical management. Will start ASA given elevated troponin and PAF. Monitor platelets closely. Continue ASA, Statin, BB. (3) Rhabdomyolysis Current Visit: Yes Status: Acute Admitted with rhabdomyolysis. Management per primary service. Qualifiers: Rhabdomyolysis type: non-traumatic Qualified Code(s): M62.82 - Rhabdomyolysis Discussion w patient/family: The assessment and plan as outlined above was discussed with the patient and/or family members who expressed understanding and agreement. All questions were answered. Thank you for involving us in the care of your patient. Please call with any questions. I will discuss all the above with Dr. Johnson and make changes as necessary. Subjective Principal diagnosis: Rhabdo, elevated troponin, KITTY Interval history: Pt went into A-Fib RVR overnight. Currently on cardizem gtt at 7.5mg/hr. Telemetry at bedside pt appears SR with PACs. Pt reports she had chest pain when she went into A-Fib that felt like "needles sticking her". Chest pain free currently. Objective Vital Signs, Last 4 Hours Temp Pulse Resp BP Pulse Ox 05/05/18 07:52 99.1 F 99 16 115/63 91 05/05/18 06:00 105 124/64 05/05/18 05:45 99 117/61 Vital Signs Temp Pulse Resp BP Pulse Ox 05/05/18 07:52 99.1 F 99 16 115/63 91 05/05/18 06:00 105 124/64 05/05/18 05:45 99 117/61 05/05/18 05:30 102 119/58 05/05/18 05:15 103 114/55 05/05/18 05:00 101 114/52 05/05/18 04:45 105 106/67 05/05/18 04:30 108 113/65 05/05/18 04:25 124 101/64 05/05/18 04:20 127 113/63 05/05/18 04:15 125 102/63 05/05/18 04:10 123 118/58 05/05/18 04:06 126 108/62 05/05/18 04:01 135 96/59 05/05/18 03:56 122 107/68 05/05/18 03:50 116 105/72 05/05/18 03:45 132 102/62 05/05/18 03:40 112 108/66 05/05/18 03:35 131 124/56 05/05/18 03:25 125 98/56 05/05/18 03:20 140 92/54 05/05/18 02:44 99.4 F 151 18 116/77 95 05/04/18 20:32 99.9 F H 05/04/18 19:10 101.2 F H 107 18 137/65 95 05/04/18 16:12 98.7 F 111 18 135/69 91 05/04/18 12:38 100.7 F H 118 18 141/79 91 Intake and Output 05/04/18 05/05/18 05/05/18 23:59 07:59 15:59 Intake Total 1120 / 1120 1002.7 / 1002.7 480 / 480 Output Total 400 / 400 1700 / 1700 Balance 720 / 720 -697.3 / -697.3 480 / 480 Intake: IV Fluids 1000 / 1000 2.7 / 2.7 Cardizem 50 MG In 0.9 % Sodium 2.7 / 2.7 Chloride 40 ML @ 5 MG/HR 5 mls/ hr IVC .Q10H NADIRA Rx#:[id number] Lactated Ringers 1,000 ML @ 80 1000 / 1000 mls/hr IVC .[id number] NADIRA Rx#: [id number] Oral 120 / 120 1000 / 1000 480 / 480 Output: Urine 400 / 400 1700 / 1700 Other: Meal Dinner Breakfast Percent of Meal Consumed 5% 10% Weight 87.3 kg Blood Glucose* 158 155 Patient Weight 05/05/18 23:59 Weight 87.3 kg General: Conversant, No Apparent Distress HEENT: Atraumatic, Normocephaly, Mucus Membranes Moist Neck: No JVD, Normal carotid pulses Cardiac: Reg Rate and Rhythm, Normal S1 and S2, No Murmur Lungs: Normal Breath Sounds, No Wheeze, Rales, Rhonchi Neuro: Alert and responsive, No focal deficits noted Abdomen: Soft, Non-Tender Skin: No rashes noted on visualized skin Musculoskeletal: No Chest Wall Tenderness Extremities: No Clubbing, No Cyanosis, No Edema, Normal Pulses Results 05/05/18 03:27 05/05/18 03:27 Lab Results 05/05/18 05/05/18 03:27 03:27 WBC 9.7 Hgb 12.0 Hct 34.7 L Plt Count 86 L Sodium 136 Potassium 3.4 L Chloride 103 Carbon Dioxide 23 BUN 11 Creatinine 0.78 Glucose 162 H Calcium 8.7 Magnesium 1.8 Short CBC 05/05/18 Range/Units 03:27 WBC 9.7 (4.3-11.1) K/mcL Hgb 12.0 (11.5-15.4) g/dL Hct 34.7 L (35.3-44.9) % Plt Count 86 L (140-400) K/mcL Neutrophils # 7.1 (1.6-8.9) K/mcL BMP 05/05/18 Range/Units 03:27 Sodium 136 (136-145) mEq/L Potassium 3.4 L (3.5-5.1) mEq/L Chloride 103 (98-107) mEq/L Carbon Dioxide 23 (23-29) mEq/L BUN 11 (8-23) mg/dL Creatinine 0.78 (0.60-1.20) mg/dL Glucose 162 H (70-105) mg/dL Calcium 8.7 (8.6-10.3) mg/dL Impressions Retroperitoneum Ultrasound 05/04/18 00:00 IMPRESSION: Left nephrolithiasis. Suspected fatty infiltration of the liver. D/ / Marcelle Hay Cha, MD / Marcelle Hay Cha, MD Interpreting Provider: Mracelle Hay Cha, MD Echocardiogram 05/04/18 08:17 Impressions: LVEF 70%. Normal LV chamber size, wall thickness and function. Mild left ventricular diastolic dysfunction. Normal right ventricular structure and function. Mild pulmonary hypertension. Chest X-Ray 05/05/18 08:48 IMPRESSION: No radiographic evidence of acute cardiopulmonary process. No focal consolidation is identified. D/ / Dustin Thompson MD / Dustin Thompson MD Interpreting Provider: Dustin Thompson MD Active Medications Acetaminophen (Tylenol) 650 mg PO Q6HR PRN PRN Reason: Mild Pain/Fever Stop: 11/02/18 08:15 Last Admin: 05/04/18 14:07 Dose: 650 mg Albuterol Sulfate (Albuterol Inhaler) 2 puff IH Q4H PRN PRN Reason: Shortness Of Breath Stop: 11/03/18 08:20 Atorvastatin Calcium (Lipitor) 20 mg PO HS NADIRA Stop: 11/03/18 21:01 Last Admin: 05/04/18 21:19 Dose: 20 mg Benztropine Mesylate (Cogentin) 1 mg PO DAILY NADIRA Stop: 11/03/18 09:01 Last Admin: 05/05/18 09:27 Dose: 1 mg Clonazepam (Klonopin) 1 mg PO BID NADIRA Stop: 11/03/18 09:01 Last Admin: 05/05/18 09:26 Dose: 1 mg Dextrose/Water (Dextrose 50% (Syg)) 25 ml IVP AD PRN PRN Reason: Hypoglycemia Stop: 11/03/18 12:43 Escitalopram Oxalate (Lexapro) 15 mg PO DAILY [facility] Stop: 11/03/18 09:01 Last Admin: 05/05/18 09:26 Dose: 15 mg Glucagon (Glucagen) 1 mg IM ONCE PRN PRN Reason: Hypoglycemia Stop: 11/03/18 12:43 Glucose (Gluctose) 15 gm PO ONCE PRN PRN Reason: Hypoglycemia Stop: 11/03/18 12:43 Glucose (Gluctose) 30 gm PO ONCE PRN PRN Reason: Hypoglycemia Stop: 11/03/18 12:43 Heparin Sodium (Porcine) (Heparin) 5,000 unit SQ Q12HR [facility] Stop: 11/02/18 18:01 Last Admin: 05/05/18 06:33 Dose: 5,000 unit Dextrose (Dextrose 5%) 1,000 mls @ 100 mls/hr IVC .Q10H PRN PRN Reason: HYPOGLYCEMIA Stop: 11/03/18 12:43 Insulin Human Lispro (Humalog) 0 units SQ TIDAC NADIRA PRN Reason: Protocol Stop: 11/03/18 16:31 Last Admin: 05/05/18 09:29 Dose: 2 units Insulin Human Lispro (Humalog) 0 units SQ HS [facility] PRN Reason: Protocol Stop: 11/03/18 21:01 Last Admin: 05/04/18 22:09 Dose: Not Given Metoprolol Succinate (Toprol Xl) 25 mg PO DAILY [facility] Stop: 11/04/18 09:01 Last Admin: 05/05/18 09:25 Dose: 25 mg Naloxone HCl (Narcan) 0.4 mg IVP Q2MIN PRN PRN Reason: SEE COMMENTS Stop: 11/02/18 08:15 Oxycodone HCl (Roxicodone) 10 mg PO Q6HR PRN PRN Reason: Severe Pain Stop: 11/02/18 08:15 Last Admin: 05/04/18 04:20 Dose: 10 mg Potassium Chloride (Potassium Chloride) 20 meq PO DAILY [facility] Stop: 11/04/18 09:01 Last Admin: 05/05/18 09:25 Dose: 20 meq Quetiapine Fumarate (Seroquel) 50 mg PO QAM NADIRA Stop: 11/04/18 09:01 Last Admin: 05/05/18 09:26 Dose: 50 mg Quetiapine Fumarate (Seroquel) 200 mg PO HS NADIRA Stop: 11/04/18 21:01 Tramadol HCl (Ultram) 50 mg PO Q6HR PRN PRN Reason: Moderate Pain Stop: 11/02/18 08:15 - Imaging and Cardiology Echo: report reviewed - EKG Interpretation EKG results cardiology: personally reviewed (A-Fib RVR HR 138), other (12 hr tele AVG HR 108, currently SR with PACs.) Consult Discharge Plan - Plan Referrals: Siobhan Robison, LEARNING AND DEVELOPMENT CONSULTANT [Primary Care Provider] -
[2018-05-05 10:11] LABS: Bilirubin,Urine Negative (Negative); Blood,Urine Large (Negative); Color,Urine Red (Yellow); Glucose,Urine (UA) Normal (Normal); Ketones,Urine 15 mg/dL (Negative); Leukocyte Esterase,Urine Large (Negative); Nitrite,Urine Negative (Negative); Protein,Urine 100 mg/dL (Neg-Trace); Specific Gravity,Urine < 1.005 (1.010-1.025); Urobilinogen,Urine Normal (Normal)
[2018-05-05 10:13] LABS: Bacteria,Urine Many per hpf (None-Few); Hyaline Casts,Urine None Seen per lpf (None-Few); RBC,Urine TNTC per hpf (0-3); Squamous Epithelial Cell,Urine None Seen per lpf (None-Few); WBC,Urine 30-50 per hpf (0-3)
[2018-05-05 10:14] LABS: Clarity,Urine Slightly Hazy (Clear)
[2018-05-05] MEDS ORDERED: cefTRIAXone 1,000 MG in Water for inj. (sterile) 20 ML 10 ML IVP ONE (10:42)
--- NOTE | 2018-05-05 10:43 | Internal Med Progress Note ---
Hospitalist Progress Note - Encounter Date of Encounter: 05/05/18 Time of Encounter: 11:00 - Subjective Interval History: Seen and examined at the bedside KITTY has resolved, CK is downtrending ECHO is unremarkable Renal USS is unremarkable She has no new symptoms, remains mildy confused, knows she is at [place], and now remembers she is here "because she is sick" She had 2 evens overnight - New onset afib with rvr requiring cardizem drip, and new fevers, T max 101.2 Her WBC remains WNL STAT UA and XR done, shows UTI , CXR is clear Awaiting brain MRI-due to new Afib, need to r/o CVA as cause of patient's confusion Hb and PLT back to baseline - Exam Vitals: Temp Pulse Resp BP Pulse Ox 99.1 F 99 16 115/63 91 05/05/18 07:52 05/05/18 07:52 05/05/18 07:52 05/05/18 07:52 05/05/18 07:52 Exam: Gen: VSS, No apparent distress HEENT: Moist oral mucosa, no cyanosis, not pale Chest: CTAB Heart: S1, S2 only, irregular, no m/g/r Abdomen: Not tender Extremities: NO edema, bilateral LE excoriations, bilateral knee rashes, old , stable - Assessment and Plan (1) Rhabdomyolysis Current Visit: Yes Status: Acute Assessment and Plan: Improving Patient said to have left the longterm where she resides for 17 hrs prior to being found in a ditch by rescue teams NO evidence of trauma on exam She has no bruises or hematoma, no evidence of compartment syndrome Discontinued IVF hydration (2) Acute renal failure Current Visit: Yes Status: Resolved Assessment and Plan: Resolved Patient with no known hx of renal disease Pre-renal KITTY from dehydration as patient reported hx of chronic diarrhea and she had been lost for 17 hrs without po intake 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 Cr and GFR from records 0.8-0.9, >60 Presented with Cr of 2.6 and GFR of 16 USS showed non-obstructing stones Renal function back to baseline (3) Elevated troponin I level Current Visit: Yes Status: Acute Assessment and Plan: Presenting trop 3.05, down trending to 2.67, no chest pain, no EKG findings, in the setting of rhabdomyolysis ECHO noted for EF of 70%, no valvular abnormalities, no wall motion abnormalities Continue tele (4) Schizophrenia Current Visit: Yes Status: Chronic Assessment and Plan: continue home meds Consult psych after medical clearance (5) Bipolar disorder Current Visit: Yes Status: Chronic Assessment and Plan: continue home meds (6) Encephalopathy Current Visit: Yes Status: Acute Assessment and Plan: Patient continues to be confused, but slightly improved she does not remember any events from 05/02 when she started to have left a prison. She does not remember who or how she went out with. Encephalopathy is likely multifactorial: Metabolic from Acute renal failure, infectious causes, no evidence of trauma on CAT scan. Urine toxicology is negative New diagnosis of Afib early mrn Obtain MRI of the brain to r/o CVA (7) Bleeding per rectum Current Visit: Yes Status: Acute Assessment and Plan: no more episodes, continue to monitor (8) Leukocytosis Current Visit: Yes Status: Resolved Assessment and Plan: resolved (9) UTI (urinary tract infection) Current Visit: Yes Status: Acute Assessment and Plan: UA noted Complicated, due to stones on USS Culture has been sent Ceftriaxone 1g daily-day 1 Patient is not septic (10) Thrombocytopenia Current Visit: Yes Status: Acute Assessment and Plan: PLT chronically low, but back to baseline this a.m Continue to monitor (11) Fever Current Visit: Yes Status: Acute Assessment and Plan: likely due to UTI Continue to monitor (12) Atrial fibrillation with RVR Current Visit: Yes Status: Acute Assessment and Plan: Continue ASA, Cardizem No anticoagulation per cardio Carddio following, input appreciated - Time Spent with Patient Total time spent is greater than 50% in coordination of care (as documented) at patient's floor/unit and/or counseling patient: Plan of Care Discussed with: patient Internal Medicine: Result - Labs CBC & Chem 7: 05/05/18 03:27 05/05/18 03:27 Labs: Short CBC 05/05/18 Range/Units 03:27 WBC 9.7 (4.3-11.1) K/mcL Hgb 12.0 (11.5-15.4) g/dL Hct 34.7 L (35.3-44.9) % Plt Count 86 L (140-400) K/mcL Neutrophils # 7.1 (1.6-8.9) K/mcL BMP 05/05/18 03:27 Sodium 136 Potassium 3.4 L Chloride 103 Carbon Dioxide 23 BUN 11 Creatinine 0.78 Glucose 162 H Calcium 8.7 Urine 05/05/18 Range/Units 09:58 Urine Color Red A (Yellow) Urine Clarity Slightly Hazy (Clear) Urine pH 7.0 (5.0-8.0) pH Units Ur Specific [place] < 1.005 L (1.010-1.025) Urine Protein 100 H (Neg-Trace) mg/dL Urine Glucose (UA) Normal (Normal) mg/dL - ABG Interpretation ABG results: PT/INR, D-dimer PT 13.6 Seconds (9.4-12.1) H 05/03/18 07:50 - Impressions Impressions Retroperitoneum Ultrasound 05/04/18 00:00 IMPRESSION: Left nephrolithiasis. Suspected fatty infiltration of the liver. D/ / Marcelle Hay Cha, MD / Marcelle Hay Cha, MD Interpreting Provider: Marcelle Hay Cha, MD Chest X-Ray 05/05/18 08:48 IMPRESSION: No radiographic evidence of acute cardiopulmonary process. No focal consolidation is identified. D/ / Dustin Thompson MD / Dustin Thompson MD Interpreting Provider: Dustin Thompson MD Consult Discharge Plan - Plan Referrals: Siobhan Robison, INLETTER [Primary Care Provider] - (1) Rhabdomyolysis Qualifiers: Rhabdomyolysis type: non-traumatic Qualified Code(s): M62.82 - Rhabdomyolysis (2) Acute renal failure Qualifiers: Acute renal failure type: unspecified Qualified Code(s): N17.9 - Acute kidney failure, unspecified (4) Schizophrenia Qualifiers: Schizophrenia type: unspecified Qualified Code(s): F20.9 - Schizophrenia, unspecified (5) Bipolar disorder Qualifiers: Active/Remission status: remission status unspecified Qualified Code(s): F31.9 - Bipolar disorder, unspecified (8) Leukocytosis Qualifiers: Leukocytosis type: unspecified Qualified Code(s): D72.829 - Elevated white blood cell count, unspecified (9) UTI (urinary tract infection) Qualifiers: Urinary tract infection type: acute cystitis Hematuria presence: with hematuria Qualified Code(s): N30.01 - Acute cystitis with hematuria (11) Fever Qualifiers: Fever type: unspecified Qualified Code(s): R50.9 - Fever, unspecified
[2018-05-05] MEDS: Diltiazem CD (24hr) 180 MG CAPSULE PO SCH (11:31)
[2018-05-05] MEDS: Aspirin 81 MG TAB.CHEW PO SCH (11:31)
--- NOTE | 2018-05-05 17:44 | Electrocardiograph Report ---
[place] [address] Test Date: 2018-05-03 Pat Name: Nia Dash Department: [id number] Room: 2NE29 Gender: F Budget Report Clerk: : 1950 Requested By: Ta Fodr Order Number: [id number] Reading MD: Jalil Jim Measurements Intervals [place] Rate: 114 P: 22 NE: 143 QRS: 37 QRSD: 67 T: 42 QT: 352 QTc: 485 Interpretive Statements Sinus tachycardia Low voltage, extremity and precordial leads Electronically Signed On 05-05-2018 17:43:00 EDT by Jalil Jim
--- NOTE | 2018-05-05 18:47 | Electrocardiograph Report ---
[address] [place] [address] Test Date: 2018-05-04 Pat Name: Nia Dash Department: 111 Room: 2NE29 Gender: F Corporate Buyer: : 1950 Requested By: Yahir Stark Order Number: [id number] Reading MD: Jalil Jim Measurements Intervals [place] Rate: 118 P: 39 MN: 136 QRS: 4 QRSD: 74 T: 30 QT: 349 QTc: 419 Interpretive Statements SINUS TACHYCARDIA INDETERMINATE AXIS LOW QRS VOLTAGE POSSIBLE ANTERIOR MYOCARDIAL INFARCTION, PROBABLY OLD Electronically Signed On 05-05-2018 18:45:46 EDT by Jalil Jim
--- NOTE | 2018-05-05 19:05 | Electrocardiograph Report ---
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
[2018-05-06] MEDS: *HR* Heparin 5,000 UNIT/ML VIAL SQ SCH ×2 (05:22→17:38)
[2018-05-06 08:21] LABS: BUN/Creatinine Ratio 16 (6-26); Blood Urea Nitrogen 14 mg/dL (8-23); Calcium 8.5 mg/dL (8.6-10.3); Carbon Dioxide 24 mEq/L (23-29); Chloride 106 mEq/L (98-107); Creatine Kinase 1123 Units/L (30-223); Glucose 167 mg/dL (70-105); Magnesium 1.8 mg/dL (1.6-2.6); Osmolality,Calculated 292 (280-300); Potassium 3.4 mEq/L (3.5-5.1); Sodium 139 mEq/L (136-145); eGFR For Non-African Americans > 60 (> 60)
[2018-05-06 09:14] LABS: Basophils % 0.4 %; Hemoglobin 11.1 g/dL (11.5-15.4); Immature Platelets 9.2 % (1.1-6.1); Lymphocytes # 1.5 K/mcL (0.6-4.6); Lymphocytes % 21.6 %; Mean Corpuscular HGB Conc 33.6 g/dL (31.6-35.5); Mean Corpuscular Hemoglobin 30.9 pg (28.0-33.3); Mean Corpuscular Volume 91.9 fL (83.0-100.0); Mean Platelet Volume 11.9 fL (9.4-12.4); Monocytes # 0.6 K/mcL (0.0-1.3); Monocytes % 8.7 %; Neutrophils # 4.9 K/mcL (1.6-8.9); Red Blood Count 3.59 M/mcL (3.82-4.97); Red Cell Distribution Width 12.7 % (11.5-14.5); Segmented Neutrophils % 68.3 %
[2018-05-06 09:54] LABS: Platelet Count 96 K/mcL (140-400)
[2018-05-06] MEDS: cefTRIAXone 1,000 MG in Water for inj. (sterile) 20 ML 10 ML IVP SCH (09:58)
[2018-05-06] MEDS: Metoprolol XL (24 HR) Succ 25 MG TAB.ER.24H PO SCH (09:59)
[2018-05-06] MEDS: Diltiazem CD (24hr) 180 MG CAPSULE PO SCH (09:59)
[2018-05-06] MEDS: Insulin LISPRO 300 UNITS/3 ML VIAL SQ SCH ×4 (09:59→22:20)
[2018-05-06] MEDS: Aspirin 81 MG TAB.CHEW PO SCH (10:00)
[2018-05-06] MEDS: clonazePAM 1 MG TABLET PO SCH (10:00)
--- NOTE | 2018-05-06 11:10 | Internal Med Progress Note ---
Hospitalist Progress Note - Encounter Date of Encounter: 05/06/18 Time of Encounter: 11:09 - Subjective Interval History: Seen and examined at the bedside KITTY has resolved, CK is downtrending ECHO is unremarkable Renal USS is unremarkable She has no new symptoms, remains mildy confused, knows she is at [place], and now remembers she is here "because she is sick" She had 2 evens overnight - New onset afib with rvr requiring cardizem drip, and new fevers, T max 101.2 Her WBC remains WNL STAT UA and XR done, shows UTI , CXR is clear Awaiting brain MRI-due to new Afib, need to r/o CVA as cause of patient's confusion Hb and PLT back to baseline - Exam Vitals: Temp Pulse Resp BP Pulse Ox 98.4 F 110 20 118/72 92 05/06/18 11:00 05/06/18 11:00 05/06/18 11:00 05/06/18 11:00 05/06/18 11:00 Exam: Gen: VSS, No apparent distress HEENT: Moist oral mucosa, no cyanosis, not pale Chest: CTAB Heart: S1, S2 only, irregular, no m/g/r Abdomen: Not tender Extremities: NO edema, bilateral LE excoriations, bilateral knee rashes, old , stable Neuro: Alert to self and place, disoriented to time, normal gait, moves all extremties, normal speech - Assessment and Plan (1) Rhabdomyolysis Current Visit: Yes Status: Acute Assessment and Plan: Resolved Patient said to have [facility] for 17 hrs prior to being found in a ditch by rescue teams NO evidence of trauma on exam She has no bruises or hematoma, no evidence of compartment syndrome Discontinued IVF hydration (2) Acute renal failure Current Visit: Yes Status: Resolved Assessment and Plan: Resolved Patient with no known hx of renal disease Pre-renal KITTY from dehydration as patient reported hx of chronic diarrhea and she had been lost for 17 hrs without po intake 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 Cr and GFR from records 0.8-0.9, >60 Presented with Cr of 2.6 and GFR of 16 USS showed non-obstructing stones Renal function back to baseline (3) Elevated troponin I level Current Visit: Yes Status: Acute Assessment and Plan: Presenting trop 3.05, down trending to 2.67, no chest pain, no EKG findings, in the setting of rhabdomyolysis ECHO noted for EF of 70%, no valvular abnormalities, no wall motion abnormalities Continue tele (4) Schizophrenia Current Visit: Yes Status: Chronic Assessment and Plan: continue home meds Consulted psych today, this mrn, for evaluation for medication adjustment due to guardian's concern for patient's increasing behavioural problems Will await recommendation (5) Bipolar disorder Current Visit: Yes Status: Chronic Assessment and Plan: continue home meds (6) Encephalopathy Current Visit: Yes Status: Acute Assessment and Plan: Acute on chronic Patient seems to be back to her baseline Acute on chronic Encephalopathy is likely multifactorial: Metabolic from Acute renal failure, infectious causes, no evidence of trauma on CAT scan. Urine toxicology is negative New diagnosis of Afib early mrn MRi no infarcts (7) Bleeding per rectum Current Visit: Yes Status: Acute Assessment and Plan: no more episodes, continue to monitor (8) Leukocytosis Current Visit: Yes Status: Resolved Assessment and Plan: resolved (9) UTI (urinary tract infection) Current Visit: Yes Status: Acute Assessment and Plan: UA noted Complicated, due to stones on USS Culture with GNR Ceftriaxone 1g daily-day 2 Patient is not septic (10) Thrombocytopenia Current Visit: Yes Status: Chronic Assessment and Plan: PLT chronically low, but back to baseline this a.m Continue to monitor (11) Fever Current Visit: Yes Status: Resolved Assessment and Plan: resolved likely due to UTI Continue to monitor (12) Atrial fibrillation with RVR Current Visit: Yes Status: Acute Assessment and Plan: Continue ASA, Cardizem No anticoagulation per cardio Continue toprol and cardizem, titrate as blood pressure allows Continue ASA - Time Spent with Patient Total time spent is greater than 50% in coordination of care (as documented) at patient's floor/unit and/or counseling patient: Plan of Care Discussed with: patient Internal Medicine: Result - Labs CBC & Chem 7: 05/06/18 07:02 05/06/18 07:02 Labs: Short CBC 05/06/18 Range/Units 07:02 WBC 7.1 (4.3-11.1) K/mcL Hgb 11.1 L (11.5-15.4) g/dL Hct 33.0 L (35.3-44.9) % Plt Count 96 L (140-400) K/mcL Neutrophils # 4.9 (1.6-8.9) K/mcL BMP 05/06/18 07:02 Sodium 139 Potassium 3.4 L Chloride 106 Carbon Dioxide 24 BUN 14 Creatinine 0.85 Glucose 167 H Calcium 8.5 L - ABG Interpretation ABG results: PT/INR, D-dimer PT 13.6 Seconds (9.4-12.1) H 05/03/18 07:50 - Impressions Impressions Brain MRI 05/05/18 08:44 IMPRESSION: 1. No acute infarct, intracranial hemorrhage, or significant mass effect. 2. Chronic small vessel ischemic white matter disease and diffuse cerebral volume loss. 3. Unchanged T1 hypointense and heterogeneous marrow signal within the clivus and upper cervical spine when compared to previous MRI brain on 01/04/2015. This could indicate marrow involving or marrow replacing processes. D/ / Dustin Thompson MD / Dustin Thompson MD Interpreting Provider: Dustin Thompson MD Consult Discharge Plan - Plan Referrals: Siobhan Robison, FIBRE CEMENT MOULDER [Primary Care Provider] - (1) Rhabdomyolysis Qualifiers: Rhabdomyolysis type: non-traumatic Qualified Code(s): M62.82 - Rhabdomyolysis (2) Acute renal failure Qualifiers: Acute renal failure type: unspecified Qualified Code(s): N17.9 - Acute kidney failure, unspecified (4) Schizophrenia Qualifiers: Schizophrenia type: unspecified Qualified Code(s): F20.9 - Schizophrenia, unspecified (5) Bipolar disorder Qualifiers: Active/Remission status: remission status unspecified Qualified Code(s): F31.9 - Bipolar disorder, unspecified (8) Leukocytosis Qualifiers: Leukocytosis type: unspecified Qualified Code(s): D72.829 - Elevated white blood cell count, unspecified (9) UTI (urinary tract infection) Qualifiers: Urinary tract infection type: acute cystitis Hematuria presence: with hematuria Qualified Code(s): N30.01 - Acute cystitis with hematuria (11) Fever Qualifiers: Fever type: unspecified Qualified Code(s): R50.9 - Fever, unspecified
--- NOTE | 2018-05-06 16:44 | Consult Note ---
Date of Encounter: 05/06/18 Time of Encounter: 15:00 Assessment & Recommendation (1) Adverse effect of sedative Current visit: Yes Status: Acute (2) Schizophrenia Current visit: Yes Status: Chronic Qualifiers: Schizophrenia type: unspecified Qualified Code(s): F20.9 - Schizophrenia, unspecified History of Present Illness Patient: new to practice Requesting Physician: Yahir Stark MD Reason for consult: confusion History of present illness: Ms. Dash is a 68 year old female The patient's chief complaint is I think this is a half-way area History of present illness. The patient has been treated for schizophrenia she has been a patient of Dr. Alcantara. The patient has been on risperidone and clonazepam for years. In her hospital stay she has been noted to have confusion. The patient was unable to tell me much of her recent history and did some short-term memory deficits. The patient did not have significant dysmetria or dysarthria. The patient reported intrusive thoughts but no hallucinations or delusions. She reports that she has not had that for a long time but she recognizes that she has a condition schizophrenia CC: Yahir Stark MD Past Med Surg Social Fam HX - Past Medical History Medical history: non-contributory, diabetes, hyperlipidemia - Past Psychiatric History Psychiatric history: Reports: schizophrenia Family psychiatric history: Unknown Family History of Suicide: Unknown - Past Surgical History Surgical History: non-contributory - Social History Smoking Status: Former smoker Smokeless Tobacco Status: No Alcohol use: none Drug use: none Medications & Allergies Albuterol Sulfate [Ventolin Hfa] 2 puff IH Q4H PRN 05/03/18 [History] Benztropine Mesylate [Benztropine Mesylate] 1 mg PO DAILY 05/03/18 [History] Escitalopram [Lexapro] 15 mg PO DAILY 05/03/18 [History] Quetiapine Fumarate [Seroquel] 50 mg PO QAM 05/03/18 [History] Quetiapine Fumarate [Seroquel] 200 mg PO HS 05/03/18 [History] RisperiDONE MICROSPHERES [RisperDAL CONSTA] 37.5 mg IM Q2W 05/03/18 [History] Simvastatin [Zocor] 40 mg PO DAILY 05/03/18 [History] clonazePAM [Clonazepam] 1 mg PO AD 05/03/18 [History] Potassium Chloride [K-Tab ER] 20 meq PO DAILY 05/04/18 [History] 3 Allergy/AdvReac Type Severity Reaction Status Date / Time No Known Allergies Allergy Verified 11/05/15 18:40 Review of Systems Psychiatric: Reports: memory loss, difficulty concentrating Psychiatry Exam - Constitutional Vitals: Temp Pulse Resp BP Pulse Ox 97.4 F L 97 18 114/67 92 05/06/18 16:19 05/06/18 16:19 05/06/18 16:19 05/06/18 16:19 05/06/18 16:19 General appearance: age & developmentally appropriate, well-groomed, well- nourished - Musculoskeletal Gait: normal Station: other, relaxed Strength & Tone: normal for patient - Psychiatric Patient Orientation: Yes Person, Yes Time, Yes Place Level of alertness: Alert Behavior: calm, cooperative Psychomotor activity: Slowed Eye Contact: Maintains Eye Contact Mood Description: Anxious Affect description: congruent with mood, full range Speech Volume: Normal Speech pattern: normal rate, normal rhythm, normal tone, fluent, limited Language & Vocabulary: difficulty finding words Thought Process: Linear, Goal Oriented Thought Content: No Suicidal ideation, No Homicidal ideation, No Overt delusions Perceptual Disturbances: No Auditory hallucinations, No Visual hallucinations Attention Span Ability: Capable of Focused Attention Memory Description: Grossly Intact Intelligence Estimate: Average Judgment: Fair Insight: Partial Results - Labs Labs: Laboratory Last Values WBC 7.1 K/mcL (4.3-11.1) 05/06/18 07:02 RBC 3.59 M/mcL (3.82-4.97) L 05/06/18 07:02 Hgb 11.1 g/dL (11.5-15.4) L 05/06/18 07:02 Hct 33.0 % (35.3-44.9) L 05/06/18 07:02 MCV 91.9 fL (83.0-100.0) 05/06/18 07:02 MCH 30.9 pg (28.0-33.3) 05/06/18 07:02 MCHC 33.6 g/dL (31.6-35.5) 05/06/18 07:02 RDW 12.7 % (11.5-14.5) 05/06/18 07:02 Plt Count 96 K/mcL (140-400) L 05/06/18 07:02 MPV 11.9 fL (9.4-12.4) 05/06/18 07:02 Immature Gran % 1.0 % (0-4) 05/06/18 07:02 Seg Neutrophils % 68.3 % 05/06/18 07:02 Lymphocytes % 21.6 % 05/06/18 07:02 Monocytes % 8.7 % 05/06/18 07:02 Eosinophils % 0.0 % 05/06/18 07:02 Basophils % 0.4 % 05/06/18 07:02 Neutrophils # 4.9 K/mcL (1.6-8.9) 05/06/18 07:02 Lymphocytes # 1.5 K/mcL (0.6-4.6) 05/06/18 07:02 Monocytes # 0.6 K/mcL (0.0-1.3) 05/06/18 07:02 Eosinophils # 0.0 K/mcL (0.0-0.6) 05/06/18 07:02 Basophils # 0.0 K/mcL (0.0-0.2) 05/06/18 07:02 Nucleated RBCs/100 WBC 0.2 /100 WBC (0) H 05/04/18 04:24 Immature Plt Fraction 9.2 % (1.1-6.1) H 05/06/18 07:02 PT 13.6 Seconds (9.4-12.1) H 05/03/18 07:50 INR 1.2 05/03/18 07:50 APTT 31.6 Seconds (26.0-36.0) 05/03/18 04:40 Heparin Anti-Xa, Unfract 0.01 IU/mL (0.30-0.70) L 05/03/18 07:50 Sodium 139 mEq/L (136-145) 05/06/18 07:02 Potassium 3.4 mEq/L (3.5-5.1) L 05/06/18 07:02 Chloride 106 mEq/L (98-107) 05/06/18 07:02 Carbon Dioxide 24 mEq/L (23-29) 05/06/18 07:02 BUN 14 mg/dL (8-23) 05/06/18 07:02 Creatinine 0.85 mg/dL (0.60-1.20) 05/06/18 07:02 Est GFR ( Amer) > 60 (> 60) 05/06/18 07:02 Est GFR (Non-Af Amer) > 60 (> 60) 05/06/18 07:02 BUN/Creatinine Ratio 16 (6-26) 05/06/18 07:02 Glucose 167 mg/dL (70-105) H 05/06/18 07:02 POC Glucose 167 mg/dL (70-99) H 05/06/18 07:33 Est Mean Plasma Glucose 137 mg/dl 05/05/18 03:27 Hemoglobin A1c 6.4 % (-5.6) H 05/05/18 03:27 Calculated Osmolality 292 (280-300) 05/06/18 07:02 Calcium 8.5 mg/dL (8.6-10.3) L 05/06/18 07:02 Phosphorus 3.0 mg/dL (2.7-4.5) 05/04/18 04:24 Magnesium 1.8 mg/dL (1.6-2.6) 05/06/18 07:02 Creatine Kinase 1123 Units/L (30-223) H 05/06/18 07:02 Troponin I 2.15 ng/mL (< 0.04) H* 05/03/18 16:23 B-Natriuretic Peptide 200 pg/mL (Less than 100) H 05/04/18 04:24 Triglycerides 487 mg/dL (< 150) H 05/04/18 04:24 Cholesterol 125 mg/dL (< 200) 05/04/18 04:24 LDL Cholesterol, Calc TNP 05/04/18 04:24 VLDL Cholesterol, Calc TNP 05/04/18 04:24 HDL Cholesterol 23 mg/dL (40-59) L 05/04/18 04:24 Cholesterol/HDL Ratio 5.4 (0-4.9) H 05/04/18 04:24 Urine Color Red (Yellow) A 05/05/18 09:58 Urine Clarity Slightly Hazy (Clear) 05/05/18 09:58 Urine pH 7.0 pH Units (5.0-8.0) 05/05/18 09:58 Ur Specific [place] < 1.005 (1.010-1.025) L 05/05/18 09:58 Urine Protein 100 mg/dL (Neg-Trace) H 05/05/18 09:58 Urine Glucose (UA) Normal mg/dL (Normal) 05/05/18 09:58 Urine Ketones 15 mg/dL (Negative) H 05/05/18 09:58 Urine Blood Large (Negative) H 05/05/18 09:58 Urine Nitrite Negative (Negative) 05/05/18 09:58 Urine Bilirubin Negative (Negative) 05/05/18 09:58 Urine Urobilinogen Normal mg/dL (Normal) 05/05/18 09:58 Ur Leukocyte Esterase Large (Negative) H 05/05/18 09:58 Urine Microscopic RBC TNTC per hpf (0-3) H 05/05/18 09:58 Urine Microscopic WBC 30-50 per hpf (0-3) H 05/05/18 09:58 Ur Squamous Epith Cells None Seen per lpf (None-Few) 05/05/18 09:58 Ur Transition Epith Cell Few per hpf (None-Few) 05/03/18 05:52 Urine Bacteria Many per hpf (None-Few) H 05/05/18 09:58 Hyaline Casts None Seen per lpf (None-Few) 05/05/18 09:58 Ur Culture Indicated? YES (NO) A 05/05/18 09:58 Urine Opiates Screen Negative ng/mL (Bfoowu=087) 05/03/18 05:52 Ur Barbiturates Screen Negative ng/mL (Kkktai=695) 05/03/18 05:52 Ur Phencyclidine Scrn Negative ng/mL (Cutoff=25) 05/03/18 05:52 Ur Amphetamines Screen Negative ng/mL (Eoclxp=3090) 05/03/18 05:52 U Benzodiazepines Scrn Negative ng/mL (Qrkeog=599) 05/03/18 05:52 Urine Cocaine Screen Negative ng/mL (Cutoff= 300) 05/03/18 05:52 U Marijuana (THC) Screen Negative ng/mL (Cutoff = 50) 05/03/18 05:52 Ur Drug Screen Interp See Below 05/03/18 05:52 Consult Discharge Plan - Plan Referrals: Siobhan Robison, [employer] [Primary Care Provider] -
[2018-05-06] MEDS: clonazePAM 0.5 MG TABLET PO SCH ×2 (17:38→21:59)
[2018-05-07] MEDS: *HR* Heparin 5,000 UNIT/ML VIAL SQ SCH (05:18)
[2018-05-07] MEDS: cefTRIAXone 1,000 MG in Water for inj. (sterile) 20 ML 10 ML IVP SCH (08:27)
[2018-05-07] MEDS: Insulin LISPRO 300 UNITS/3 ML VIAL SQ SCH ×2 (08:27→11:42)
[2018-05-07] MEDS: Aspirin 81 MG TAB.CHEW PO SCH (08:29)
[2018-05-07] MEDS: Metoprolol XL (24 HR) Succ 25 MG TAB.ER.24H PO SCH (08:29)
[2018-05-07] MEDS: Diltiazem CD (24hr) 180 MG CAPSULE PO SCH (08:39)
[2018-05-07] MEDS ORDERED: clonazePAM 1 MG TABLET PO SCH (09:00)
[2018-05-07 09:28] LABS: Basophils % 0.5 %; Hematocrit 33.1 % (35.3-44.9); Hemoglobin 11.1 g/dL (11.5-15.4); Immature Granulocytes % 1.6 % (0-4); Lymphocytes # 1.9 K/mcL (0.6-4.6); Lymphocytes % 32.7 %; Mean Corpuscular HGB Conc 33.5 g/dL (31.6-35.5); Mean Corpuscular Hemoglobin 30.4 pg (28.0-33.3); Mean Corpuscular Volume 90.7 fL (83.0-100.0); Monocytes # 0.4 K/mcL (0.0-1.3); Monocytes % 6.3 %; Neutrophils # 3.4 K/mcL (1.6-8.9); Platelet Count 119 K/mcL (140-400); Red Blood Count 3.65 M/mcL (3.82-4.97); Red Cell Distribution Width 12.9 % (11.5-14.5); Segmented Neutrophils % 58.9 %
--- NOTE | 2018-05-07 10:06 | Discharge Summary ---
- NOTES TO OUTPATIENT PROVIDER Notes to Outpatient Provider: 68 F with multiple psych diagnoses who was admitted for acute on chronic encephalopathy, UTI,Afib with RVR, Rhadbomyolysis with KITTY. All her promary diagnoses have resolved with treatment. She does have chronic psychosis and mostly confused, psych eval in this admission did not recommend need for in-patient psych evaluation but recommended tapering her clonazepam. She is discharged on oral anitbiotics for UTI treatment for 4 more days, She has been started on metoprolol and diltiazem , as well as daily ASA for new diagnosis of atrial fibrillation, and her statin has been changed to lipitor from zocor. She has also been prescribed a tapering dose of clonazepam. Follow up with PCP, Psych, Cardio as out-patient. Date of Encounter: 05/07/18 Time of Encounter: 10:06 - Discharge Diagnosis (1) Rhabdomyolysis Priority: Primary Status: Resolved Qualifiers: Rhabdomyolysis type: non-traumatic Qualified Code(s): M62.82 - Rhabdomyolysis (2) Acute renal failure Priority: Primary Status: Resolved Qualifiers: Acute renal failure type: unspecified Qualified Code(s): N17.9 - Acute kidney failure, unspecified (3) Elevated troponin I level Priority: Primary Status: Resolved (4) Schizophrenia Priority: Secondary Status: Chronic Qualifiers: Schizophrenia type: unspecified Qualified Code(s): F20.9 - Schizophrenia, unspecified (5) Bipolar disorder Priority: Secondary Status: Chronic Qualifiers: Active/Remission status: remission status unspecified Qualified Code(s): F31.9 - Bipolar disorder, unspecified (6) Encephalopathy Priority: Primary Status: Resolved (7) Bleeding per rectum Priority: Secondary Status: Chronic (8) Leukocytosis Priority: Primary Status: Resolved Qualifiers: Leukocytosis type: unspecified Qualified Code(s): D72.829 - Elevated white blood cell count, unspecified (9) UTI (urinary tract infection) Priority: Primary Status: Acute Qualifiers: Urinary tract infection type: acute cystitis Hematuria presence: with hematuria Qualified Code(s): N30.01 - Acute cystitis with hematuria (10) Thrombocytopenia Priority: Secondary Status: Chronic (11) Fever Priority: Primary Status: Resolved Qualifiers: Fever type: unspecified Qualified Code(s): R50.9 - Fever, unspecified (12) Atrial fibrillation with RVR Priority: Primary Status: Resolved Hospital course: Ms. Dash is a 68 year old female 68 F with multiple psych diagnoses who was admitted for acute on chronic encephalopathy, UTI,Afib with RVR, Rhadbomyolysis with KITTY. All her promary diagnoses have resolved with treatment. She does have chronic psychosis and mostly confused, psych eval in this admission did not recommend need for in- patient psych evaluation but recommended tapering her clonazepam. She is discharged on oral anitbiotics for UTI treatment for 4 more days, She has been started on metoprolol and diltiazem , as well as daily ASA for new diagnosis of atrial fibrillation, and her statin has been changed to lipitor from zocor. She has also been prescribed a tapering dose of clonazepam. Follow up with PCP, Psych, Cardio as out-patient. Discharge discussed with: case management - Time Spent with Patient Total time spent providing and/or coordinating discharge services: Less than 30 minutes - Discharge Medications Prescriptions: Aspirin 81 mg PO DAILY #30 tab.chew Atorvastatin [Lipitor] 20 mg PO HS #30 tablet Cefdinir [Omnicef] 300 mg PO BID #8 capsule clonazePAM [Klonopin] 0.5 mg PO TID 6 Days #20 tablet Diltiazem CD (24hr) [Cardizem CD] 180 mg PO DAILY #30 cap.er.24h Metoprolol XL (24 HR) Succ [Toprol Xl] 25 mg PO DAILY #30 tab.er.24h Home Medications: Albuterol Sulfate [Ventolin Hfa] 2 puff IH Q4H PRN 05/03/18 [History] Benztropine Mesylate 1 mg PO DAILY 05/03/18 [History] Escitalopram [Lexapro] 15 mg PO DAILY 05/03/18 [History] Quetiapine Fumarate [Seroquel] 50 mg PO QAM 05/03/18 [History] Quetiapine Fumarate [Seroquel] 200 mg PO HS 05/03/18 [History] RisperiDONE MICROSPHERES [RisperDAL CONSTA] 37.5 mg IM Q2W 05/03/18 [History] Potassium Chloride [K-Tab ER] 20 meq PO DAILY 05/04/18 [History] Aspirin 81 mg PO DAILY #30 tab.chew 05/07/18 [Rx] Atorvastatin [Lipitor] 20 mg PO HS #30 tablet 05/07/18 [Rx] Cefdinir [Omnicef] 300 mg PO BID #8 capsule 05/07/18 [Rx] Diltiazem CD (24hr) [Cardizem CD] 180 mg PO DAILY #30 cap.er.24h 05/07/18 [Rx] Metoprolol XL (24 HR) Succ [Toprol Xl] 25 mg PO DAILY #30 tab.er.24h 05/07/18 [ Rx] clonazePAM [Klonopin] 0.5 mg PO TID 6 Days #20 tablet 05/07/18 [Rx] Allergies/Adverse Reactions: 3 Allergy/AdvReac Type Severity Reaction Status Date / Time No Known Allergies Allergy Verified 11/05/15 18:40 Date of admission: 05/03/18 07:59 Primary care physician: Siobhan Robison CNP Consults: 05/03/18 12:51 Consult to Nutrition [CONS] Routine Comment: Consulting Provider: NUTRITION Reason for Dietary Consult: MST Score Consult to Cdl A Driver [CONS] Routine Reason for SW Consult: From nursing home, found in outside in [facility] per nursing report. 05/06/18 08:14 Consult to Psychiatry [CONS] Routine Consulting Provider: Psychiatry Kristy Reason consult: Confusion Psychosis Discharging clinician: Yahir Stark Anticipated date of discharge: 05/07/18 - Constitutional Vitals: Temp Pulse Resp BP Pulse Ox 98.2 F 98 16 114/80 95 05/07/18 07:23 05/07/18 07:23 05/07/18 07:23 05/07/18 07:23 05/07/18 07:23 General appearance: Present: A&O X 2, pleasant, no acute distress, obese. Absent: answers questions appropriately Exam: Gen: VSS, No apparent distress HEENT: Moist oral mucosa, no cyanosis, not pale Chest: CTAB Heart: S1, S2 only, irregular, no m/g/r Abdomen: Not tender Extremities: NO edema, bilateral LE excoriations, bilateral knee rashes, old , stable Neuro: Alert to self and place, disoriented to time, normal gait, moves all extremties, normal speech - Patient Status Disposition: Home, Self-Care Condition: Good Functional capacity at discharge: independent ambulation Overall status at discharge: patient is progressing back to baseline - Discharge Instructions Follow Up With: Siobhan Robison CNP [Primary Care Provider] - 05/14/18 10:00 am - Diet and Activity Activity: resume usual activities as tolerated Diet: diabetic diet
[2018-05-07 11:42] VITALS: BP 126/64
[2018-05-07] MEDS ORDERED: clonazePAM 0.5 MG TABLET PO SCH (15:00)
[2018-05-07] MEDS ORDERED: Cefdinir 300 MG CAPSULE PO SCH (21:00)
== END 2018-05-07 15:33 | disposition home or self-care (01) | DRG 682 ==
LOC: SUATTDRO → EMEROOARM 04:06 → SUATTDRO 07:59 → 2NENU 07:59
PROVIDERS: ADMIT Family Medicine; ATTEND Internal Medicine